=== PATIENT | female | born 1960 | race Caucasian/White ===

== ENCOUNTER 2017-12-05 10:50 | Inpatient (IN) | payer MEDICARE, OTHER ==
[2017-12-05 12:33] LABS: Basophils % (A) 0 %; Eosinophils # (A) 0.2 k/uL (0-0.7); Eosinophils % (A) 4 %; HCT 35.3 % (34.0-46.0); HGB 10.9 gm/dL (11.4-16.0); Hypochromasia Moderate; Lymphocytes # (A) 1.4 k/uL (1.0-4.8); Lymphocytes % (A) 22 %; MCHC 30.9 g/dL (31.0-37.0); MCV 74.5 fL (80.0-100.0); Mean Platelet Volume 6.3; Microcytosis Slight; Monocytes # (A) 0.4 k/uL (0-1.0); Monocytes % (A) 6 %; Neutrophils # (A) 4.2 k/uL (1.3-7.7); Neutrophils % (A) 67 %; Platelet Count 473 k/uL (150-450); RBC 4.74 m/uL (3.80-5.40); RDW 15.8 % (11.5-15.5); WBC 6.3 k/uL (3.8-10.6)
[2017-12-05 12:49] LABS: ALT 16 U/L (9-52); AST 16 U/L (14-36); Albumin 3.2 g/dL (3.5-5.0); Alkaline Phosphatase 114 U/L (38-126); Anion Gap 10 mmol/L; Blood Urea Nitrogen 12 mg/dL (7-17); Calcium 8.8 mg/dL (8.4-10.2); Carbon Dioxide 24 mmol/L (22-30); Chloride 109 mmol/L (98-107); Glucose 99 mg/dL (74-99); Potassium 3.8 mmol/L (3.5-5.1); Sodium 143 mmol/L (137-145); Total Bilirubin 0.7 mg/dL (0.2-1.3); Total Protein 7.2 g/dL (6.3-8.2)
[2017-12-05] MEDS ORDERED: ceFAZolin IN SWFI 2 GM/20 ML SYRINGE IVP ONE (13:30)
[2017-12-05] MEDS: SODIUM CHLORIDE 0.9% 1,000 ML IV SCH (14:24)
[2017-12-05] MEDS: HYDROmorphone 1 MG/ML 1 ML SYRINGE IVP PRN ×2 (14:48→23:18)
--- NOTE | 2017-12-05 14:56 | P.HPIM ---
History of Present Illness H&P Date: 12/05/17 Chief Complaint: Bilateral lower extremity ulcers This is a 57-year-old female, patient of Dr. Lo. She has a known past medical history of cerebral palsy with chronic gait disturbance, chronic bilateral lower extremity lymphedema, chronic venous insufficiency, asthma, hypertension and depression. Patient was at the wound care center seen Dr. Ellsworth for evaluation of the bilateral lower extremity ulcers. Patient was seen in the wound care center and was directly admitted to the hospital by Dr. Ellsworth under Dr. Etienne's service. Dr. Ellsworth I will be proceeding with an I&D tomorrow of the left foot. Patient's has been having drainage from the left foot. Also, per Dr. Ellsworth she apparently injured the dorsum of her left foot. Patient is a poor historian. She is unable to tell me if she's had injury to her feet. Apparently she has not been taking her medications at home. She has run out of them and was having difficulty getting refills. Social work has been consulted as well. Patient may need placement. Patient denies any chest pain or shortness of breath. Denies any nausea or vomiting. Denies any bowel movement changes or urinary symptoms. Denies any fever or chills or sweats. She does report finding a Magette on the left heel. She was able to remove it. She reports tolerating Dr. Ellsworth about this. Legs are currently wrapped. They were wrapped at the wound care center. I have not been able to visualize the legs. However, the left foot does have drainage seeping through that is foul smelling. Keflex has been ordered. Infectious disease has been consulted. Patient denies any history of diabetes. She does report pain in her feet. Review of Systems Please refer to HPI otherwise unremarkable Past Medical History Past Medical History: Asthma, GERD/Reflux, Hypertension Additional Past Medical History / Comment(s): Cerebral palsey, bilateeral lower extremity deformities, bilateral lower leg and feet cellulitis, current L foot and R lower leg ulcers, chronic lymphedema, chronic venous insufficiency, gait disturbance, occasional urinary leakage, abdominal hernia, seasonal asthma. History of Any Multi-Drug Resistant Organisms: None Reported Past Surgical History: No Surgical Hx Reported Additional Past Surgical History / Comment(s): Bilateral heel cord lenghtenings , several bilateral leg surgeries for mobility. Past Anesthesia/Blood Transfusion Reactions: No Reported Reaction, Motion Sickness Smoking Status: Never smoker - Past Family History Father Additional Family Medical History / Comment(s): Father has a mechanical heart valve. He has hypoglycemia. Mother Family Medical History: Cancer Additional Family Medical History / Comment(s): Mother from metastatic breast cancer at the age of 53 yrs. Medications and Allergies Home Medications Medication Instructions Recorded Confirmed Type Albuterol Inhaler [Ventolin Hfa 2 puff INHALATION RT-Q6H PRN 12/05/17 12/05/17 History Inhaler] Bumetanide [Bumex] 1 mg PO BID 12/05/17 12/05/17 History Cetirizine HCl [Zyrtec] 10 mg PO DAILY 12/05/17 12/05/17 History Cetirizine HCl [Zyrtec] 10 mg PO DAILY 12/05/17 12/05/17 History Ergocalciferol [Vitamin D2] 50,000 unit PO Q7D 12/05/17 12/05/17 History Fluticasone/Salmeterol [Advair 1 inhalation PO RT-BID 12/05/17 12/05/17 History 250-50 Diskus] Furosemide [Lasix] 20 mg PO DAILY 12/05/17 12/05/17 History Omeprazole [PriLOSEC] 20 mg PO BID 12/05/17 12/05/17 History Potassium Chloride [Klor-Con 20] 20 meq PO TID 12/05/17 12/05/17 History Tolterodine Tartrate [Detrol LA] 4 mg PO DAILY 12/05/17 12/05/17 History amLODIPine [Norvasc] 5 mg PO DAILY 12/05/17 12/05/17 History Allergies Allergy/AdvReac Type Severity Reaction Status Date / Time Sulfa (Sulfonamide AdvReac INDIGESTION Verified 12/05/17 08:38 Antibiotics) Physical Exam Vitals: Vital Signs Temp Pulse Resp BP Pulse Ox 12/05/17 14:17 98.0 F 84 18 159/89 98 12/05/17 12:32 96.6 F L 79 18 175/83 98 Intake and Output 12/04/17 12/05/17 12/05/17 22:59 06:59 14:59 Other: # Voids 1 Weight 102 kg Head normocephalic Neck supple Lungs clear to auscultation bilaterally no wheezing or crackles Heart regular rate and rhythm S1-S2, no rub or gallop Abdomen is soft nontender nondistended positive bowel sounds no hepatosplenomegaly Extremities chronic lymphedema bilateral lower extremities. Both legs are Nilay wrapped. Left foot has a foul drainage's seeping through the dressing. Neuro alert and orientated to 3 Results CBC & Chem 7: 12/05/17 12:15 12/05/17 12:15 Labs: Abnormal Lab Results - Last 24 Hours (Table) 12/05/17 12/05/17 Range/Units 12:15 12:15 Hgb 10.9 L (11.4-16.0) gm/dL MCV 74.5 L (80.0-100.0) fL MCH 23.0 L (25.0-35.0) pg MCHC 30.9 L (31.0-37.0) g/dL RDW 15.8 H (11.5-15.5) % Plt Count 473 H (150-450) k/uL Chloride 109 H (98-107) mmol/L Albumin 3.2 L (3.5-5.0) g/dL Thrombosis Risk Factor Assmnt - Choose All That Apply Any of the Below Risk Factors Present?: Yes Each Factor Represents 1 point: Age 41-60 years, Obesity (BMI >25) Other Risk Factors: No Other congenital or acquired thrombophilia - If yes, enter type in comment: No Thrombosis Risk Factor Assessment Total Risk Factor Score: 2 Thrombosis Risk Factor Assessment Level: Low Risk Assessment and Plan Assessment: 1. Bilateral lower extremity ulcers with a traumatic left foot ulcer. Patient is scheduled for I&D tomorrow with Dr. Ellsworth. She was a direct admit from the wound care center. Infectious disease has been consulted for antibiotic recommendations. Check blood culture. Culture ulcer drainage 2. Chronic Lymphedema of bilateral lower extremities 3. History of cerebral palsy with chronic gait disturbance 4. Chronic venous insufficiency 5. Mild intermittent asthma 6. Essential hypertension Plan Patient is scheduled for I&D tomorrow with Dr. Ellsworth. Start subcu heparin after surgical procedure tomorrow Nursing staff trying to figure out patient's home medications Start Normal saline at 50 mL an hour Dilaudid 1 mg IVPB every 8 hours as needed for pain Time with Patient: Greater than 30 (Greater than 60% of the total time spent in counseling and coordination of care.I performed an examination of the patient and discussed their management with the physician Community Service Worker. I have reviewed the Physician Community Service Worker's notes and agree with the documented findings and plan of care)
[2017-12-05] MEDS: amLODIPine 5 MG TAB PO SCH (15:40)
[2017-12-05] MEDS ORDERED: POTASSIUM CHLORIDE ER 20 MEQ TAB.ER PO SCH (16:00)
--- NOTE | 2017-12-05 16:02 | XR ---
EXAMINATION TYPE: XR foot complete bilateral DATE OF EXAM: 12/05/2017 COMPARISON: NONE HISTORY: Nonhealing wound TECHNIQUE: Three views are submitted of each foot. FINDINGS: There is diffuse soft tissue edema of the left foot with areas of air which may be related to the sof t tissue ulceration or infectious etiology with subcutaneous emphysema. There is reduced mineralizati on of the distal margin of the fourth digit suspicious for osteomyelitis. There is marked soft tissue thickening and edema overlying the right lower extremity. No overt bony d estruction. There is bilateral arthropathy of the first MTP. Due to technique and positioning assessment of dista l phalanx of all digits limited bilateral pes planus deformity. IMPRESSION: 1. Massive soft tissue edema and thickening involving the dorsum of the left foot. There is air withi n the soft tissues thickening which may represent ulceration or infectious emphysema. 2. Reduced mineralization of the fourth phalanx. Relate with bone scan to assess for osteomyelitis.
[2017-12-05] MEDS: ALBUTEROL NEBULIZED 2.5 MG/3 ML INHALATION PRN (20:19)
[2017-12-05] MEDS: SYMBICORT 80-4.5 MCG INHALER INHALATION SCH (20:29)
[2017-12-05] MEDS: BUMETANIDE 1 MG TAB PO SCH (22:27)
[2017-12-05] MEDS: POTASSIUM CHLORIDE ER 20 MEQ TAB.ER PO SCH (22:27)
[2017-12-06 02:27] LABS: Iron Saturation 5.81 (12.00-45.00)
[2017-12-06] MEDS ORDERED: ceFAZolin IN SWFI 2 GM/20 ML SYRINGE IVP ONE ×2 (06:00→11:49)
[2017-12-06] MEDS: SYMBICORT 80-4.5 MCG INHALER INHALATION SCH ×2 (08:04→20:07)
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
[2017-12-06 10:58] LABS: Basophils % (A) 0 %; Eosinophils # (A) 0.1 k/uL (0-0.7); Eosinophils % (A) 1 %; HCT 34.1 % (34.0-46.0); HGB 10.2 gm/dL (11.4-16.0); Hypochromasia Marked; Lymphocytes # (A) 1.7 k/uL (1.0-4.8); Lymphocytes % (A) 18 %; MCH 22.4 pg (25.0-35.0); MCHC 29.9 g/dL (31.0-37.0); MCV 75.1 fL (80.0-100.0); Mean Platelet Volume 6.6; Microcytosis Slight; Monocytes # (A) 0.6 k/uL (0-1.0); Monocytes % (A) 6 %; Neutrophils # (A) 6.7 k/uL (1.3-7.7); Neutrophils % (A) 73 %; Platelet Count 442 k/uL (150-450); RBC 4.54 m/uL (3.80-5.40); RDW 15.5 % (11.5-15.5); WBC 9.2 k/uL (3.8-10.6)
[2017-12-06 11:04] LABS: ALT 19 U/L (9-52); AST 13 U/L (14-36); Alkaline Phosphatase 94 U/L (38-126); Anion Gap 9 mmol/L; Blood Urea Nitrogen 9 mg/dL (7-17); Calcium 8.7 mg/dL (8.4-10.2); Carbon Dioxide 27 mmol/L (22-30); Chloride 107 mmol/L (98-107); Glucose 104 mg/dL (74-99); Potassium 3.9 mmol/L (3.5-5.1); Sodium 143 mmol/L (137-145); Total Bilirubin 0.8 mg/dL (0.2-1.3); Total Protein 6.6 g/dL (6.3-8.2)
[2017-12-06] MEDS ORDERED: IV FLUID CONTINUATION 50 ML IV ONE (13:10)
[2017-12-06] MEDS ORDERED: LACTATED RINGERS 1,000 ML IV ONE (13:17)
[2017-12-06 13:49] VITALS: BMI 41.1
--- NOTE | 2017-12-06 14:22 | XR ---
EXAMINATION TYPE: XR chest 1V portable DATE OF EXAM: 12/06/2017 COMPARISON: Prior chest x-ray 12/08/2015 HISTORY: Preop TECHNIQUE: Single frontal view of the chest is obtained. FINDINGS: Patient is rotated. There is no focal air space opacity, pleural effusion, or pneumothorax seen. The cardiac silhouette size is within normal limits. The osseous structures are intact. IMPRESSION: No acute process.
[2017-12-06] MEDS ORDERED: HYDROmorphone 1 MG/ML 1 ML SYRINGE IVP ONE (14:24)
[2017-12-06] MEDS ORDERED: KETAMINE 10 MG/ML 20 ML VIAL ONE (14:32)
[2017-12-06] MEDS ORDERED: fentaNYL (PF) 50 MCG/ML 2 ML AMP ONE (14:32)
[2017-12-06] MEDS ORDERED: PROPOFOL 10 MG/ML 20 ML VIAL IV ONE (14:32)
[2017-12-06] MEDS ORDERED: MIDAZOLAM 2 MG/2 ML VIAL ONE (14:32)
--- NOTE | 2017-12-06 15:41 | PCM.SQDEBR ---
Subcutaneous Debridement - Subcutaneous Debridement Subcutaneous Debridement: Date of service: 12/06/2017 Surgeon: Seng Pre-and postop diagnosis: Traumatic ulcer dorsum left foot and chronic stasis ulcer 2 right leg Type of debridement: Excisional surgical subcutaneous Chief complaint: ulcer of dorsum left foot and medial and lateral right lower leg Anesthesia: IV sedation was utilized Signs of infection: Mild redness Other material in the wound that is expected to inhibit healing or promote adjacent tissue breakdown: Nonviable skin and soft tissue Degree of epithelialization: % Method and instrument: Surgical debridement with scalpel and sharp curette Character of wound after debridement: Clean bloody subcutaneous bed Description of necrotic material present: Nonviable skin and soft tissue and slough Description of tissue removed: Same Pre-debridement measurement: Dorsum left foot 4 x 5, medial right lower leg 2.5 x 1.8 lateral right lower leg 2 x 1.1 cm and 4, 0.2, and 0.2 cm in depth respectively Postoperative debridement measurement: 7 x 6.5, 3 x 2, and 2.5 x 1.5 cm respectively and 4.5, 0.4, and 0.3 cm in depth respectively Specimens deep tissue from the dorsum of the foot sent for cultures Control of bleeding:Bleeding was easily controlled with saline moistened gauze and light pressure Post debridement dressing: Absorptive silver Patient tolerated procedure well
[2017-12-06] MEDS: HYDROmorphone 1 MG/ML 1 ML SYRINGE IVP ONE ×2 (15:43→15:54)
[2017-12-06] MEDS: SODIUM CHLORIDE 0.9% 1,000 ML IV SCH (16:31)
--- NOTE | 2017-12-06 16:41 | P.PN ---
Subjective Progress Note Date: 12/06/17 This is a 57-year-old female, patient of Dr. Lo. She has a known past medical history of cerebral palsy with chronic gait disturbance, chronic bilateral lower extremity lymphedema, chronic venous insufficiency, asthma, hypertension and depression. Patient was at the wound care center seen Dr. Ellsworth for evaluation of the bilateral lower extremity ulcers. Patient was seen in the wound care center and was directly admitted to the hospital by Dr. Ellsworth under Dr. Etienne's service. Dr. Ellsworth I will be proceeding with an I&D tomorrow of the left foot. Patient's has been having drainage from the left foot. Also, per Dr. Ellsworth she apparently injured the dorsum of her left foot. Patient is a poor historian. She is unable to tell me if she's had injury to her feet. Apparently she has not been taking her medications at home. She has run out of them and was having difficulty getting refills. Social work has been consulted as well. Patient may need placement. Patient denies any chest pain or shortness of breath. Denies any nausea or vomiting. Denies any bowel movement changes or urinary symptoms. Denies any fever or chills or sweats. She does report finding a Magette on the left heel. She was able to remove it. She reports tolerating Dr. Ellsworth about this. Legs are currently wrapped. They were wrapped at the wound care center. I have not been able to visualize the legs. However, the left foot does have drainage seeping through that is foul smelling. Keflex has been ordered. Infectious disease has been consulted. Patient denies any history of diabetes. She does report pain in her feet. 12/06/2017 patient is status post debridement of left foot with Dr. Laws. Patient denies chest pain or shortness of breath. Denies nausea, vomiting or diarrhea. Denies any urinary burning or frequency Objective - Vital Signs Vital signs: Vital Signs Temp 97 F L 12/06/17 15:39 Pulse 81 12/06/17 16:00 Resp 14 12/06/17 16:00 BP 151/77 12/06/17 16:00 Pulse Ox 99 12/06/17 16:00 Intake & Output 12/05/17 12/06/17 12/06/17 18:59 06:59 18:59 Intake Total 400 1000 Output Total 20 Balance 400 980 Weight 102 kg 102 kg Intake: IV 600 Intake, IV Titration 400 400 Amount Sodium Chloride 0.9% 1, 400 400 000 ml @ 50 mls/hr IV . Q20H [facility] Rx#:[id number] Output: Estimated Blood Loss 20 Other: # Voids 1 8 - Exam Head normocephalic Neck supple Lungs clear to auscultation bilaterally no wheezing or crackles Heart regular rate and rhythm S1-S2, no rub or gallop Abdomen is soft nontender nondistended positive bowel sounds no hepatosplenomegaly Extremities chronic lymphedema bilateral lower extremities. Both legs are Nilay wrapped. left foot dressing clean dry an intact Neuro alert and orientated to 3 - Labs CBC & Chem 7: 12/06/17 10:11 12/06/17 10:11 Labs: Abnormal Lab Results - Last 24 Hours (Table) 12/05/17 12/05/17 12/06/17 Range/Units 12:15 15:45 10:11 Hgb 10.2 L (11.4-16.0) gm/dL MCV 75.1 L (80.0-100.0) fL MCH 22.4 L (25.0-35.0) pg MCHC 29.9 L (31.0-37.0) g/dL Glucose (74-99) mg/dL Iron 19 L (50-170) ug/dL Iron Saturation 5.81 L (12.00-45.00) AST (14-36) U/L Albumin (3.5-5.0) g/dL Prealbumin 15.0 L (18.0-42.0) mg/dL 12/06/17 Range/Units 10:11 Hgb (11.4-16.0) gm/dL MCV (80.0-100.0) fL MCH (25.0-35.0) pg MCHC (31.0-37.0) g/dL Glucose 104 H (74-99) mg/dL Iron (50-170) ug/dL Iron Saturation (12.00-45.00) AST 13 L (14-36) U/L Albumin 3.0 L (3.5-5.0) g/dL Prealbumin (18.0-42.0) mg/dL Assessment and Plan Assessment: 1. Bilateral lower extremity ulcers with a traumatic left foot ulcer. Patient is scheduled for I&D tomorrow with Dr. Ellsworth. She was a direct admit from the wound care center. Infectious disease has been consulted for antibiotic recommendations. Patient is status post subcutaneous debated debridement of left foot with Dr. Laws today. Blood Culture currently negative. Left leg currently negative. 2. Chronic Lymphedema of bilateral lower extremities 3. History of cerebral palsy with chronic gait disturbance 4. Chronic venous insufficiency 5. Mild intermittent asthma 6. Essential hypertension GI prophylaxis Protonix. DVT prophylaxis SCDs I performed an examination of the patient and discussed their management with the Nurse Practitioner. I have reviewed the Nurse Practitioner's notes and agree with the documented findings and plan of care
[2017-12-06] MEDS: amLODIPine 5 MG TAB PO SCH (18:48)
[2017-12-06] MEDS: NYSTATIN 100,000 UNIT/GM POWD 15 GM TOPICAL SCH ×3 (18:48→22:11)
[2017-12-06] MEDS: OXYBUTYNIN XL 5 MG TAB.ER.24 PO SCH (18:48)
[2017-12-06] MEDS: PANTOPRAZOLE 40 MG TABLET PO SCH (18:48)
[2017-12-06] MEDS: POTASSIUM CHLORIDE ER 20 MEQ TAB.ER PO SCH ×2 (18:48→22:11)
[2017-12-06] MEDS: BUMETANIDE 1 MG TAB PO SCH ×2 (18:48→22:11)
[2017-12-06] MEDS: ONDANSETRON 4 MG/2 ML VIAL IVP PRN (20:30)
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
[2017-12-07] MEDS: HYDROmorphone 1 MG/ML 1 ML SYRINGE IVP PRN ×3 (05:32→21:52)
[2017-12-07] MEDS: SODIUM CHLORIDE 0.9% 1,000 ML IV SCH (06:00)
[2017-12-07] MEDS: POTASSIUM CHLORIDE ER 20 MEQ TAB.ER PO SCH ×2 (08:27→20:51)
[2017-12-07] MEDS: amLODIPine 5 MG TAB PO SCH (08:27)
[2017-12-07] MEDS: PANTOPRAZOLE 40 MG TABLET PO SCH (08:27)
[2017-12-07] MEDS: NYSTATIN 100,000 UNIT/GM POWD 15 GM TOPICAL SCH ×3 (08:27→21:49)
[2017-12-07] MEDS: OXYBUTYNIN XL 5 MG TAB.ER.24 PO SCH (08:27)
[2017-12-07] MEDS: BUMETANIDE 1 MG TAB PO SCH ×2 (08:27→20:52)
[2017-12-07 08:47] LABS: ALT 9 U/L (9-52); AST 14 U/L (14-36); Albumin 2.7 g/dL (3.5-5.0); Alkaline Phosphatase 82 U/L (38-126); Anion Gap 8 mmol/L; Blood Urea Nitrogen 6 mg/dL (7-17); Calcium 8.4 mg/dL (8.4-10.2); Carbon Dioxide 27 mmol/L (22-30); Chloride 106 mmol/L (98-107); Glucose 140 mg/dL (74-99); Sodium 141 mmol/L (137-145); Total Bilirubin 0.9 mg/dL (0.2-1.3); Total Protein 6.3 g/dL (6.3-8.2)
--- NOTE | 2017-12-07 08:51 | P.PN ---
Subjective Progress Note Date: 12/07/17 Principal diagnosis: Chronic lymphedema with ulcers right leg and traumatic ulcer left foot The patient is status post I&D of all of her ulcers and her left foot wound yesterday. She has no new complaints. She does not appear to have significant discomfort. Objective - Vital Signs Vital signs: Vital Signs Temp 98.3 F 12/07/17 07:00 Pulse 100 12/07/17 07:00 Resp 18 12/07/17 07:00 BP 117/80 12/07/17 07:00 Pulse Ox 95 12/07/17 07:00 Intake & Output 12/06/17 12/07/17 12/07/17 18:59 06:59 18:59 Intake Total 1450 400 Output Total 20 Balance 1430 400 Weight 102 kg Intake: IV 1050 Intake, IV Titration 400 400 Amount Sodium Chloride 0.9% 1, 400 400 000 ml @ 50 mls/hr IV . Q20H PAM Rx#:[id number] Output: Estimated Blood Loss 20 Other: # Voids 3 - Exam Her wounds are at this time clean. There is some serous drainage from the left foot dressing. - Labs CBC & Chem 7: 12/06/17 10:11 12/07/17 08:11 Labs: Abnormal Lab Results - Last 24 Hours (Table) 12/06/17 12/06/17 12/07/17 Range/Units 10:11 10:11 08:11 Hgb 10.2 L (11.4-16.0) gm/dL MCV 75.1 L (80.0-100.0) fL MCH 22.4 L (25.0-35.0) pg MCHC 29.9 L (31.0-37.0) g/dL BUN 6 L (7-17) mg/dL Glucose 104 H 140 H (74-99) mg/dL AST 13 L (14-36) U/L Albumin 3.0 L 2.7 L (3.5-5.0) g/dL Microbiology - Last 24 Hours (Table) 12/06/17 15:08 Gram Stain - Preliminary Foot - Left Tissue Culture - Preliminary 12/06/17 15:08 Anaerobic Culture - Preliminary Foot - Left 12/05/17 16:07 Blood Culture - Preliminary Blood No Growth after 24 hours 12/05/17 15:45 Blood Culture - Preliminary Blood No Growth after 24 hours Assessment and Plan (1) Chronic ulcer of left foot with fat layer exposed Current Visit: No Status: Acute Code(s): L97.522 - NON-PRS CHRONIC ULCER OTH PRT LEFT FOOT W FAT LAYER EXPOSED SNOMED Code(s): 382321199 (2) Lymphedema of both lower extremities Current Visit: No Status: Acute Code(s): I89.0 - LYMPHEDEMA, NOT ELSEWHERE CLASSIFIED SNOMED Code(s): 04198908174992958 Plan: This patient's wounds appear to be stable at this time. I have requested absorptive silver for the right leg with Nilay wraps for compression. I would like Nilay wrap compression on the left leg as well as a wound VAC. She will require ECF placement, due to her physical disabilities, until she has resolved her wounds. She will require leg elevation the majority of the time. She can still do other physical activities in bed to maintain strength. I will be out of town for a few weeks and she can follow in the wounds center with other individuals until my return.
[2017-12-07 09:04] LABS: Basophils % (A) 0 %; Eosinophils # (A) 0.3 k/uL (0-0.7); Eosinophils % (A) 4 %; HCT 33.1 % (34.0-46.0); HGB 10.2 gm/dL (11.4-16.0); Hypochromasia Marked; Lymphocytes # (A) 1.3 k/uL (1.0-4.8); Lymphocytes % (A) 14 %; MCH 23.2 pg (25.0-35.0); MCHC 30.7 g/dL (31.0-37.0); MCV 75.6 fL (80.0-100.0); Mean Platelet Volume 6.8; Microcytosis Slight; Monocytes # (A) 0.5 k/uL (0-1.0); Monocytes % (A) 6 %; Neutrophils # (A) 6.6 k/uL (1.3-7.7); Neutrophils % (A) 75 %; Platelet Count 403 k/uL (150-450); RBC 4.38 m/uL (3.80-5.40); RDW 15.5 % (11.5-15.5); WBC 8.8 k/uL (3.8-10.6)
[2017-12-07] MEDS: SYMBICORT 80-4.5 MCG INHALER INHALATION SCH ×2 (09:07→22:16)
--- NOTE | 2017-12-07 12:25 | P.PN ---
Subjective Progress Note Date: 12/07/17 his is a 57-year-old female, patient of Dr. Lo. She has a known past medical history of cerebral palsy with chronic gait disturbance, chronic bilateral lower extremity lymphedema, chronic venous insufficiency, asthma, hypertension and depression. Patient was at the wound care center seen Dr. Ellsworth for evaluation of the bilateral lower extremity ulcers. Patient was seen in the wound care center and was directly admitted to the hospital by Dr. Ellsworth under Dr. Etienne's service. Dr. Ellsworth I will be proceeding with an I&D tomorrow of the left foot. Patient's has been having drainage from the left foot. Also, per Dr. Ellsworth she apparently injured the dorsum of her left foot. Patient is a poor historian. She is unable to tell me if she's had injury to her feet. Apparently she has not been taking her medications at home. She has run out of them and was having difficulty getting refills. Social work has been consulted as well. Patient may need placement. Patient denies any chest pain or shortness of breath. Denies any nausea or vomiting. Denies any bowel movement changes or urinary symptoms. Denies any fever or chills or sweats. She does report finding a Magette on the left heel. She was able to remove it. She reports tolerating Dr. Ellswroth about this. Legs are currently wrapped. They were wrapped at the wound care center. I have not been able to visualize the legs. However, the left foot does have drainage seeping through that is foul smelling. Keflex has been ordered. Infectious disease has been consulted. Patient denies any history of diabetes. She does report pain in her feet. 12/06/2017 patient is status post debridement of left foot with Dr. Laws. Patient denies chest pain or shortness of breath. Denies nausea, vomiting or diarrhea. Denies any urinary burning or frequency 12/07/2017 patient scheduled for bone scan today. Also scheduled for wound VAC placement on the left foot. Pain is tolerable. Discussed with infectious disease they've adjusted antibiotics to Kefzol 2 g IV every 8 hours. Cultures are pending. Patient does have evidence of iron deficiency anemia placed on iron supplement. Hemoglobin 10.2. Will switch patient to oral pain medication in anticipation for discharge to [facility] soon. Objective - Vital Signs Vital signs: Vital Signs Temp 98.3 F 12/07/17 07:00 Pulse 100 12/07/17 07:00 Resp 18 12/07/17 07:00 BP 117/80 12/07/17 07:00 Pulse Ox 95 12/07/17 09:07 Intake & Output 12/06/17 12/07/17 12/07/17 18:59 06:59 18:59 Intake Total 1450 400 Output Total 20 Balance 1430 400 Weight 102 kg Intake: IV 1050 Intake, IV Titration 400 400 Amount Sodium Chloride 0.9% 1, 400 400 000 ml @ 50 mls/hr IV . Q20H PAM Rx#:[id number] Output: Estimated Blood Loss 20 Other: # Voids 3 - Exam Head normocephalic Neck supple Lungs clear to auscultation bilaterally no wheezing or crackles Heart regular rate and rhythm S1-S2, no rub or gallop Abdomen is soft nontender nondistended positive bowel sounds no hepatosplenomegaly Extremities legs are Nilay wrap. Drainage from the left foot Neuro alert and orientated to 3 - Labs CBC & Chem 7: 12/07/17 08:11 12/07/17 08:11 Labs: Abnormal Lab Results - Last 24 Hours (Table) 12/06/17 12/07/17 12/07/17 Range/Units 10:11 08:11 08:11 Hgb 10.2 L 10.2 L (11.4-16.0) gm/dL Hct 33.1 L (34.0-46.0) % MCV 75.1 L 75.6 L (80.0-100.0) fL MCH 22.4 L 23.2 L (25.0-35.0) pg MCHC 29.9 L 30.7 L (31.0-37.0) g/dL BUN 6 L (7-17) mg/dL Glucose 140 H (74-99) mg/dL Albumin 2.7 L (3.5-5.0) g/dL Microbiology - Last 24 Hours (Table) 12/06/17 15:08 Gram Stain - Preliminary Foot - Left Tissue Culture - Preliminary 12/06/17 15:08 Anaerobic Culture - Preliminary Foot - Left 12/05/17 16:07 Blood Culture - Preliminary Blood No Growth after 24 hours 12/05/17 15:45 Blood Culture - Preliminary Blood No Growth after 24 hours Assessment and Plan Assessment: 1. Bilateral lower extremity ulcers with a traumatic left foot ulcer. Status post debridement of the left foot by Dr. Ellsworth. Patient scheduled for bone scan and wound VAC placement today. Cultures are negative so far. Continue with IV Kefzol 2 grams every 8 hours per infectious disease 2. Chronic Lymphedema of bilateral lower extremities 3. History of cerebral palsy with chronic gait disturbance 4. Chronic venous insufficiency 5. Mild intermittent asthma 6. Essential hypertension 7. Iron deficiency anemia: Start ferrous sulfate 325 mg twice a day. Iron low at 19 8. Moderate to severe protein calorie malnutrition: Albumin 2.7. Start ensure 1 can 3 times a day with meals Consult Dr. Bennett for possible inpatient rehab Social work and physical therapy following. Patient will require placement at time of discharge. I performed an examination of the patient and discussed their management with the physician Hat Liner. I have reviewed the Physician Hat Liner's notes and agree with the documented findings and plan of care
--- NOTE | 2017-12-07 14:17 | NM ---
EXAMINATION TYPE: NM bone 3 phase DATE OF EXAM: 12/07/2017 COMPARISON: X-ray dated 12/05/2017 HISTORY: Pain Triple phase bone scintigraphy was performed following the injection of 25.3 mCi Tc 99m MDP. Immedia te images and 4.25 hours post injection images acquired. FINDINGS: There is asymmetric increased flow to the left lower extremity and foot.. Increased soft tissue uptake overlying the dorsum of the foot is suggestive of cellulitis. Delayed uptake demonstrates no diagnostic evidence of osteomyelitis. IMPRESSION: Findings most compatible with cellulitis left foot
[2017-12-07] MEDS: HYDROcodone/APAP 5-325MG 1 EACH TAB PO PRN (14:48)
[2017-12-07] MEDS ORDERED: HYDROmorphone 1 MG/ML 1 ML SYRINGE IVP STA (15:07)
[2017-12-07] MEDS: ceFAZolin IN SWFI 2 GM/20 ML SYRINGE IVP SCH (15:34)
[2017-12-07] MEDS: ONDANSETRON 4 MG/2 ML VIAL IVP PRN (15:34)
--- NOTE | 2017-12-07 16:21 | P.CONS ---
History of Present Illness - Chief Complaint Medical debility - History of Present Illness I had the opportunity to see patient for inpatient rehab consultation with regard to medical debility. She was admitted to [facility] December 05 with bilateral foot swelling and cellulitis of left foot. A foot x-ray done and demonstrated marked edema left foot. Bone scan done in's consistent with cellulitis left foot. Chest x-ray negative. Seen in consultation by Dr. Matthews in [place]. Patient reports underwent debridement procedure yesterday. Previous functional history as elicited patient: 57 showed right-handed white female single lives in a first-floor apartment alone. On SSI. Describes independent with own cooking, laundry, driving, sitdown shower. Previously using 2 canes for gait with more recently POV. Doesn't smoke or drink. Dr. Lo is regular doctor. Family history of cancer in both parents and hypertension in father. Review of Systems Review of systems: ENT: Denies sneezes or discharge. Eyes: Denies discharge or photophobia. Cardiac: Denies chest pain or palpitation. Pulmonary: Denies cough or shortness of breath. Breast: Denies discharge or lumps. Gastrointestinal: Nausea from pain medication. Genitourinary: Denies discharge or frequency. Musculoskeletal: Bilateral foot discomfort that is severe and left. Neurologic: Long-standing weakness legs due to cerebral palsy.. Endocrine: Denies shakes or sweats. Oncology: Denies cancers. Dermatologic: Denies rash, itching, pruritus. ALLERGY/immunology: Denies sneezes, rashes. Past Medical History Past Medical History: Asthma, GERD/Reflux, Hypertension Additional Past Medical History / Comment(s): Cerebral palsey, bilateeral lower extremity deformities, bilateral lower leg and feet cellulitis, current L foot and R lower leg ulcers, chronic lymphedema, chronic venous insufficiency, gait disturbance, occasional urinary leakage, abdominal hernia, seasonal asthma. History of Any Multi-Drug Resistant Organisms: None Reported Past Surgical History: No Surgical Hx Reported Additional Past Surgical History / Comment(s): Bilateral heel cord lenghtenings , several bilateral leg surgeries for mobility. Past Anesthesia/Blood Transfusion Reactions: No Reported Reaction, Motion Sickness Smoking Status: Never smoker Additional Past Alcohol Use History / Comment(s): Lifelong nonsmoker. No illicit drug use. Patient lives independently but states she needs to move out by the end of the month. She normally uses a scooter for ambulation. - Past Family History Father Additional Family Medical History / Comment(s): Father has a mechanical heart valve. He has hypoglycemia. Mother Family Medical History: Cancer Additional Family Medical History / Comment(s): Mother from metastatic breast cancer at the age of 53 yrs. Medications and Allergies Home Medications Medication Instructions Recorded Confirmed Type Albuterol Inhaler [Ventolin Hfa 2 puff INHALATION RT-Q6H PRN 12/05/17 12/05/17 History Inhaler] Bumetanide [Bumex] 1 mg PO BID 12/05/17 12/05/17 History Cetirizine HCl [Zyrtec] 10 mg PO DAILY 12/05/17 12/05/17 History Ergocalciferol [Vitamin D2] 50,000 unit PO Q7D 12/05/17 12/05/17 History Fluticasone/Salmeterol [Advair 1 inhalation PO RT-BID 12/05/17 12/05/17 History 250-50 Diskus] Furosemide [Lasix] 20 mg PO DAILY 12/05/17 12/05/17 History Lidocaine 5% Patch [Lidoderm] 1 patch TOPICAL DAILY 12/05/17 12/05/17 History Omeprazole [PriLOSEC] 20 mg PO BID 12/05/17 12/05/17 History Potassium Chloride [Klor-Con 20] 20 meq PO TID 12/05/17 12/05/17 History Tolterodine Tartrate [Detrol LA] 4 mg PO DAILY 12/05/17 12/05/17 History amLODIPine [Norvasc] 5 mg PO DAILY 12/05/17 12/05/17 History Allergies Allergy/AdvReac Type Severity Reaction Status Date / Time Sulfa (Sulfonamide AdvReac INDIGESTION Verified 12/06/17 13:19 Antibiotics) Physical Exam Vitals: Vital Signs Temp Pulse Resp BP BP Pulse Ox 12/07/17 15:00 98.3 F 91 18 134/69 96 12/07/17 09:07 95 12/07/17 07:00 98.3 F 100 18 117/80 95 12/06/17 23:00 99.1 F 92 17 148/78 93 L 12/06/17 16:55 81 153/88 96 12/06/17 16:40 87 150/82 96 12/06/17 16:31 82 6 L 151/71 94 L 12/06/17 16:25 98.1 F 86 18 166/93 99 Intake and Output 12/07/17 12/07/17 12/07/17 06:59 14:59 22:59 Other: # Voids 3 Skin: Good color, texture, turgor. General: Medium build and comfortable appearance. Head: Normocephalic, atraumatic. Eyes: Symmetric. Pupils equal round. Ears: Symmetric. Hearing within normal limits. Mouth: Clear. Neck: Supple. Carotid without bruit. Cardiac: Regular rate and rhythm. Lungs: Clear anteriorly and posteriorly. Abdomen: Soft active nontender. Overweight. Extremities: Normal tone. Both legs demonstrate flexion and knees and external rotation at ankles. Left foot is markedly swollen with a drainage tube. Neurological: Mental status: Alert, cooperative, pleasant. Cranial nerves: Symmetric facial tone and trapezius. Motor: Normal strength in arms. Legs poor. Sensation: Intact throughout. DTRs: Symmetric and equal throughout. Mobility: Unable to sit or stand up at this time due to nausea and lower extremity weakness. Results CBC & Chem 7: 12/07/17 08:11 12/07/17 08:11 Labs: Abnormal Lab Results - Last 24 Hours (Table) 12/07/17 12/07/17 Range/Units 08:11 08:11 Hgb 10.2 L (11.4-16.0) gm/dL Hct 33.1 L (34.0-46.0) % MCV 75.6 L (80.0-100.0) fL MCH 23.2 L (25.0-35.0) pg MCHC 30.7 L (31.0-37.0) g/dL BUN 6 L (7-17) mg/dL Glucose 140 H (74-99) mg/dL Albumin 2.7 L (3.5-5.0) g/dL Microbiology - Last 24 Hours (Table) 12/06/17 15:08 Gram Stain - Preliminary Foot - Left Tissue Culture - Preliminary 12/06/17 15:08 Anaerobic Culture - Preliminary Foot - Left 12/05/17 16:07 Blood Culture - Preliminary Blood No Growth after 24 hours 12/05/17 15:45 Blood Culture - Preliminary Blood No Growth after 24 hours Assessment and Plan (1) Chronic ulcer of left foot with fat layer exposed Current Visit: No Status: Acute Code(s): L97.522 - NON-PRS CHRONIC ULCER OTH PRT LEFT FOOT W FAT LAYER EXPOSED SNOMED Code(s): 525903153 (2) Lymphedema of both lower extremities Current Visit: No Status: Acute Code(s): I89.0 - LYMPHEDEMA, NOT ELSEWHERE CLASSIFIED SNOMED Code(s): 46845779395062755 (3) Cellulitis Current Visit: No Status: Acute Code(s): L03.90 - CELLULITIS, UNSPECIFIED SNOMED Code(s): 879909985 Plan: Impression: 1. Walking difficulty. 2. Cellulitis left foot. 3. Cerebral palsy, spastic diplegia. 4. Asthma. 5. Hypertension. 6. GERD. Comments and plan: At this time PT and OT are ordered. Follow therapies with yourself.
[2017-12-07] MEDS: FERROUS SULFATE 325 MG TAB PO SCH (20:52)
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
[2017-12-08] MEDS: ceFAZolin IN SWFI 2 GM/20 ML SYRINGE IVP SCH ×3 (00:01→18:07)
[2017-12-08] MEDS: SODIUM CHLORIDE 0.9% 1,000 ML IV SCH (03:14)
[2017-12-08 08:27] LABS: Basophils % (A) 0 %; Eosinophils # (A) 0.4 k/uL (0-0.7); Eosinophils % (A) 5 %; HCT 33.7 % (34.0-46.0); HGB 10.4 gm/dL (11.4-16.0); Hypochromasia Slight; Lymphocytes # (A) 1.5 k/uL (1.0-4.8); Lymphocytes % (A) 16 %; MCH 22.8 pg (25.0-35.0); MCHC 30.9 g/dL (31.0-37.0); MCV 73.9 fL (80.0-100.0); Microcytosis Slight; Monocytes # (A) 0.7 k/uL (0-1.0); Monocytes % (A) 8 %; Neutrophils # (A) 6.4 k/uL (1.3-7.7); Neutrophils % (A) 70 %; Platelet Count 374 k/uL (150-450); RBC 4.56 m/uL (3.80-5.40); RDW 15.9 % (11.5-15.5); WBC 9.1 k/uL (3.8-10.6)
[2017-12-08 08:38] LABS: Albumin 3.1 g/dL (3.5-5.0); Calcium 8.5 mg/dL (8.4-10.2); Potassium 4.3 mmol/L (3.5-5.1); Total Bilirubin 0.8 mg/dL (0.2-1.3); Total Protein 6.9 g/dL (6.3-8.2)
[2017-12-08] MEDS: PANTOPRAZOLE 40 MG TABLET PO SCH (08:51)
[2017-12-08] MEDS: FERROUS SULFATE 325 MG TAB PO SCH ×2 (08:51→22:29)
[2017-12-08] MEDS: HYDROmorphone 1 MG/ML 1 ML SYRINGE IVP PRN (08:51)
[2017-12-08] MEDS: amLODIPine 5 MG TAB PO SCH (08:51)
[2017-12-08] MEDS: OXYBUTYNIN XL 5 MG TAB.ER.24 PO SCH (08:51)
[2017-12-08] MEDS: BUMETANIDE 1 MG TAB PO SCH ×2 (08:51→22:29)
[2017-12-08] MEDS: POTASSIUM CHLORIDE ER 20 MEQ TAB.ER PO SCH ×2 (08:51→22:29)
[2017-12-08] MEDS: SYMBICORT 80-4.5 MCG INHALER INHALATION SCH ×2 (09:06→19:52)
--- NOTE | 2017-12-08 11:01 | P.PN ---
Subjective Progress Note Date: 12/08/17 his is a 57-year-old female, patient of Dr. Lo. She has a known past medical history of cerebral palsy with chronic gait disturbance, chronic bilateral lower extremity lymphedema, chronic venous insufficiency, asthma, hypertension and depression. Patient was at the wound care center seen Dr. Ellsworth for evaluation of the bilateral lower extremity ulcers. Patient was seen in the wound care center and was directly admitted to the hospital by Dr. Ellsworth under Dr. Etienne's service. Dr. Ellsworth I will be proceeding with an I&D tomorrow of the left foot. Patient's has been having drainage from the left foot. Also, per Dr. Ellsworth she apparently injured the dorsum of her left foot. Patient is a poor historian. She is unable to tell me if she's had injury to her feet. Apparently she has not been taking her medications at home. She has run out of them and was having difficulty getting refills. Social work has been consulted as well. Patient may need placement. Patient denies any chest pain or shortness of breath. Denies any nausea or vomiting. Denies any bowel movement changes or urinary symptoms. Denies any fever or chills or sweats. She does report finding a Magette on the left heel. She was able to remove it. She reports tolerating Dr. Ellsworth about this. Legs are currently wrapped. They were wrapped at the wound care center. I have not been able to visualize the legs. However, the left foot does have drainage seeping through that is foul smelling. Keflex has been ordered. Infectious disease has been consulted. Patient denies any history of diabetes. She does report pain in her feet. 12/06/2017 patient is status post debridement of left foot with Dr. Laws. Patient denies chest pain or shortness of breath. Denies nausea, vomiting or diarrhea. Denies any urinary burning or frequency 12/07/2017 patient scheduled for bone scan today. Also scheduled for wound VAC placement on the left foot. Pain is tolerable. Discussed with infectious disease they've adjusted antibiotics to Kefzol 2 g IV every 8 hours. Cultures are pending. Patient does have evidence of iron deficiency anemia placed on iron supplement. Hemoglobin 10.2. Will switch patient to oral pain medication in anticipation for discharge to [facility] soon. 12/08/2018 patient lying in bed comfortably. Reporting now that her pain is controlled. She had wound VAC placed yesterday. Bone scan completed showing no osteomyelitis is evidence of cellulitis of the left foot. Left foot tissue culture growing gram-negative bacilli and group D enterococcus. Infectious diseasewith surgery are following. Patient seen by Dr. Joseph awaiting physical therapy input for his final decision by patient. Patient reports she is passing gas no bowel movement yet. Denies any burning with urination. Did have some nausea earlier today. Was able to eat. No actual vomiting. Objective - Vital Signs Vital signs: Vital Signs Temp 98.8 F 12/08/17 06:55 Pulse 86 12/08/17 06:55 Resp 16 12/08/17 06:55 BP 140/78 12/08/17 06:55 Pulse Ox 97 12/08/17 06:55 Intake & Output 12/07/17 12/08/17 12/08/17 18:59 06:59 18:59 Intake Total 400 200 Balance 400 200 Intake: Intake, IV Titration 400 Amount IV Fluid Continuation 50 400 ml @ 0 mls/hr IV .[facility] ONE Rx#:[id number] Oral 200 Other: Voiding Method Bedpan Bedpan Bedpan Incontinent Incontinent Incontinent # Voids 4 1 - Exam Head normocephalic Neck supple Lungs clear to auscultation bilaterally no wheezing or crackles Heart regular rate and rhythm S1-S2, no rub or gallop Abdomen is soft nontender nondistended positive bowel sounds no hepatosplenomegaly Extremities legs are Nilay wrap. Left foot wound VAC in place Neuro alert and orientated to 3 - Labs CBC & Chem 7: 12/08/17 07:47 12/08/17 07:47 Labs: Abnormal Lab Results - Last 24 Hours (Table) 12/08/17 12/08/17 Range/Units 07:47 07:47 Hgb 10.4 L (11.4-16.0) gm/dL Hct 33.7 L (34.0-46.0) % MCV 73.9 L (80.0-100.0) fL MCH 22.8 L (25.0-35.0) pg MCHC 30.9 L (31.0-37.0) g/dL RDW 15.9 H (11.5-15.5) % Glucose 100 H (74-99) mg/dL Albumin 3.1 L (3.5-5.0) g/dL Microbiology - Last 24 Hours (Table) 12/06/17 15:08 Gram Stain - Preliminary Foot - Left Tissue Culture - Preliminary Gram Neg Bacilli Gram Neg Bacilli#2 Group D Enterococcus 12/05/17 16:07 Blood Culture - Preliminary Blood No Growth after 48 hours 12/05/17 15:45 Blood Culture - Preliminary Blood No Growth after 48 hours Assessment and Plan Assessment: 1. Bilateral lower extremity ulcers with a traumatic left foot ulcer. Status post debridement of the left foot by Dr. Ellsworth. Patient status post wound VAC placement to the left foot. Continue Kefzol for IV antibiotics. Infectious disease is following. Culture growing gram-negative bacilli and group D enterococcus. Bone scan showed no evidence of osteomyelitis did reveal cellulitis of the left foot. Awaiting wound cultures to be finalized and further antibiotic recommendations 2. Chronic Lymphedema of bilateral lower extremities 3. History of cerebral palsy with chronic gait disturbance 4. Chronic venous insufficiency 5. Mild intermittent asthma 6. Essential hypertension 7. Iron deficiency anemia: Start ferrous sulfate 325 mg twice a day. Iron low at 19 8. Moderate to severe protein calorie malnutrition: Albumin 2.7. Start ensure 1 can 3 times a day with meals Consult Dr. Bennett for possible inpatient rehab Social work and physical therapy following. Patient will require placement at time of discharge. I performed an examination of the patient and discussed their management with the physician Washtub Worker Helper. I have reviewed the Physician Washtub Worker Helper's notes and agree with the documented findings and plan of care
[2017-12-08] MEDS: NYSTATIN 100,000 UNIT/GM POWD 15 GM TOPICAL SCH ×2 (12:04→18:08)
--- NOTE | 2017-12-08 16:32 | P.PN ---
Subjective Progress Note Date: 12/08/17 Principal diagnosis: Traumatic ulcer dorsum left foot and chronic stasis ulcer 2 right leg. Previous medical history of cerebral palsy with chronic rate disturbance, chronic bilateral lower extremity lymphedema, chronic venous insufficiency, asthma, hypertension, and depression. POD #1 excisional surgical subcutaneous debridement of the left leg Patient is currently laying in bed with legs elevated and wound VAC on left leg in no acute distress. Objective - Vital Signs Vital signs: Vital Signs Temp 98.8 F 12/08/17 06:55 Pulse 86 12/08/17 06:55 Resp 16 12/08/17 06:55 BP 140/78 12/08/17 06:55 Pulse Ox 97 12/08/17 06:55 Intake & Output 12/07/17 12/08/17 12/08/17 18:59 06:59 18:59 Intake Total 400 200 Balance 400 200 Weight 102 kg Intake: Intake, IV Titration 400 Amount IV Fluid Continuation 50 400 ml @ 0 mls/hr IV .[employer] ONE Rx#:[id number] Oral 200 Other: Voiding Method Bedpan Bedpan Bedpan Incontinent Incontinent Incontinent # Voids 4 1 - Constitutional General appearance: Present: cooperative, no acute distress, obese - Respiratory Details: Lungs sounds clear to auscultation. Respirations even, nonlabored. Currently on room air with oxygen saturation 97%. - Cardiovascular Details: S1, S2 present. Regular rate and rhythm. - Gastrointestinal Gastrointestinal Comment(s): Abdomen soft, nontender, nondistended. Active bowel sounds 4 quadrants. Tolerating diet. - Genitourinary Genitourinary Comment(s): Continues to void via bedpan. - Musculoskeletal Musculoskeletal: Present: strength equal bilaterally - Psychiatric Psychiatric: Present: A&O x's 3 - Allied health notes Allied health notes reviewed: nursing - Labs CBC & Chem 7: 12/08/17 07:47 12/08/17 07:47 Labs: Abnormal Lab Results - Last 24 Hours (Table) 12/08/17 12/08/17 Range/Units 07:47 07:47 Hgb 10.4 L (11.4-16.0) gm/dL Hct 33.7 L (34.0-46.0) % MCV 73.9 L (80.0-100.0) fL MCH 22.8 L (25.0-35.0) pg MCHC 30.9 L (31.0-37.0) g/dL RDW 15.9 H (11.5-15.5) % Glucose 100 H (74-99) mg/dL Albumin 3.1 L (3.5-5.0) g/dL Microbiology - Last 24 Hours (Table) 12/06/17 15:08 Gram Stain - Preliminary Foot - Left Tissue Culture - Preliminary Gram Neg Bacilli Gram Neg Bacilli#2 Group D Enterococcus 12/05/17 16:07 Blood Culture - Preliminary Blood No Growth after 48 hours 12/05/17 15:45 Blood Culture - Preliminary Blood No Growth after 48 hours Assessment and Plan (1) Chronic ulcer of left foot with fat layer exposed Current Visit: No Status: Acute Code(s): L97.522 - NON-PRS CHRONIC ULCER OTH PRT LEFT FOOT W FAT LAYER EXPOSED SNOMED Code(s): 655139338 Plan: 1. Continue wound VAC to left lower extremity, to be changed Monday, Monday , Monday. Leg should be wrapped with an Nilay wrap for compression. 2. Right lower extremity dressing change with absorptive silver, Kerlix, Nilay wrap from toes to knees for compression. 3. Bilateral lower extremities should be elevated the majority of the time. 4. Pain control, management of other comorbidities per primary care service. 5. Patient will require ECF placement at discharge. She can follow in the wound care center weekly. 6. Patient may be discharged from our standpoint whenever okay with other specialties. Time with Patient: Greater than 30
[2017-12-08] MEDS: HYDROcodone/APAP 5-325MG 1 EACH TAB PO PRN (22:45)
[2017-12-09] MEDS: NYSTATIN 100,000 UNIT/GM POWD 15 GM TOPICAL SCH ×4 (00:03→23:16)
[2017-12-09] MEDS: SODIUM CHLORIDE 0.9% 1,000 ML IV SCH ×2 (00:04→19:07)
[2017-12-09] MEDS: HYDROmorphone 1 MG/ML 1 ML SYRINGE IVP PRN ×3 (00:33→20:38)
[2017-12-09] MEDS: ceFAZolin IN SWFI 2 GM/20 ML SYRINGE IVP SCH ×4 (00:36→23:42)
[2017-12-09] MEDS: HYDROcodone/APAP 5-325MG 1 EACH TAB PO PRN ×2 (06:16→23:16)
[2017-12-09] MEDS: SYMBICORT 80-4.5 MCG INHALER INHALATION SCH ×2 (07:30→19:27)
[2017-12-09 08:18] LABS: Albumin 3.4 g/dL (3.5-5.0); Calcium 8.7 mg/dL (8.4-10.2); Potassium 4.4 mmol/L (3.5-5.1); Total Bilirubin 0.8 mg/dL (0.2-1.3); Total Protein 7.5 g/dL (6.3-8.2)
[2017-12-09] MEDS: POTASSIUM CHLORIDE ER 20 MEQ TAB.ER PO SCH ×2 (09:00→20:38)
[2017-12-09] MEDS: OXYBUTYNIN XL 5 MG TAB.ER.24 PO SCH (09:00)
[2017-12-09] MEDS: PANTOPRAZOLE 40 MG TABLET PO SCH (09:00)
[2017-12-09] MEDS: FERROUS SULFATE 325 MG TAB PO SCH ×2 (09:01→20:38)
[2017-12-09] MEDS: BUMETANIDE 1 MG TAB PO SCH ×2 (09:01→20:38)
[2017-12-09] MEDS: amLODIPine 5 MG TAB PO SCH (09:01)
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
[2017-12-09 11:25] LABS: Basophils % (A) 1 %; Eosinophils # (A) 0.3 k/uL (0-0.7); Eosinophils % (A) 4 %; HCT 37.8 % (34.0-46.0); HGB 11.5 gm/dL (11.4-16.0); Hypochromasia Marked; Lymphocytes # (A) 1.1 k/uL (1.0-4.8); Lymphocytes % (A) 16 %; MCH 22.9 pg (25.0-35.0); MCHC 30.5 g/dL (31.0-37.0); MCV 75.2 fL (80.0-100.0); Mean Platelet Volume 6.7; Microcytosis Slight; Monocytes # (A) 0.8 k/uL (0-1.0); Monocytes % (A) 11 %; Neutrophils # (A) 4.8 k/uL (1.3-7.7); Neutrophils % (A) 68 %; Platelet Count 390 k/uL (150-450); RBC 5.02 m/uL (3.80-5.40); RDW 15.6 % (11.5-15.5); WBC 7.1 k/uL (3.8-10.6)
--- NOTE | 2017-12-09 13:08 | P.PN ---
Subjective Progress Note Date: 12/09/17 his is a 57-year-old female, patient of Dr. Lo. She has a known past medical history of cerebral palsy with chronic gait disturbance, chronic bilateral lower extremity lymphedema, chronic venous insufficiency, asthma, hypertension and depression. Patient was at the wound care center seen Dr. Ellsworth for evaluation of the bilateral lower extremity ulcers. Patient was seen in the wound care center and was directly admitted to the hospital by Dr. Ellsworth under Dr. Etienne's service. Dr. Ellsworth I will be proceeding with an I&D tomorrow of the left foot. Patient's has been having drainage from the left foot. Also, per Dr. Ellsworth she apparently injured the dorsum of her left foot. Patient is a poor historian. She is unable to tell me if she's had injury to her feet. Apparently she has not been taking her medications at home. She has run out of them and was having difficulty getting refills. Social work has been consulted as well. Patient may need placement. Patient denies any chest pain or shortness of breath. Denies any nausea or vomiting. Denies any bowel movement changes or urinary symptoms. Denies any fever or chills or sweats. She does report finding a Magette on the left heel. She was able to remove it. She reports tolerating Dr. Ellsworth about this. Legs are currently wrapped. They were wrapped at the wound care center. I have not been able to visualize the legs. However, the left foot does have drainage seeping through that is foul smelling. Keflex has been ordered. Infectious disease has been consulted. Patient denies any history of diabetes. She does report pain in her feet. 12/06/2017 patient is status post debridement of left foot with Dr. Laws. Patient denies chest pain or shortness of breath. Denies nausea, vomiting or diarrhea. Denies any urinary burning or frequency 12/07/2017 patient scheduled for bone scan today. Also scheduled for wound VAC placement on the left foot. Pain is tolerable. Discussed with infectious disease they've adjusted antibiotics to Kefzol 2 g IV every 8 hours. Cultures are pending. Patient does have evidence of iron deficiency anemia placed on iron supplement. Hemoglobin 10.2. Will switch patient to oral pain medication in anticipation for discharge to [facility] soon. 12/08/2018 patient lying in bed comfortably. Reporting now that her pain is controlled. She had wound VAC placed yesterday. Bone scan completed showing no osteomyelitis is evidence of cellulitis of the left foot. Left foot tissue culture growing gram-negative bacilli and group D enterococcus. Infectious diseasewith surgery are following. Patient seen by Dr. Joseph awaiting physical therapy input for his final decision by patient. Patient reports she is passing gas no bowel movement yet. Denies any burning with urination. Did have some nausea earlier today. Was able to eat. No actual vomiting. On 12/09/2017 patient is alert and oriented 3 in no apparent distress she is complaining of pain in her left foot and her right heel area otherwise she denies any complaints she was admitted with cellulitis was large ulcer on the left foot she is maintained on IV cefazolin and wound VAC to the left foot Dr. Hunter infectious disease is following. Otherwise patient denies any other complaints there is no chest pain or shortness of breath no cough no nausea or vomiting no abdominal pain and no urinary symptoms. Objective - Vital Signs Vital signs: Vital Signs Temp 99.2 F 12/09/17 07:00 Pulse 71 12/09/17 07:00 Resp 20 12/09/17 07:00 BP 117/74 12/09/17 07:00 Pulse Ox 94 L 12/09/17 07:00 Intake & Output 12/08/17 12/09/17 12/09/17 18:59 06:59 18:59 Intake Total 600 Balance 600 Weight 102 kg Intake: Oral 600 Other: Voiding Method Bedpan Bedpan Incontinent Diaper Incontinent # Voids 5 2 2 # Bowel Movements 0 - Exam Head normocephalic and atraumatic Neck supple no JVD no goiter Lungs clear to auscultation bilaterally no wheezing or crackles Heart regular rate and rhythm S1-S2, no rub or gallop Abdomen is soft nontender nondistended positive bowel sounds no hepatosplenomegaly Extremities legs are Nilay wrap. Left foot wound VAC in place Neuro alert and orientated to 3 - Labs CBC & Chem 7: 12/09/17 11:00 12/09/17 07:07 Labs: Abnormal Lab Results - Last 24 Hours (Table) 12/09/17 12/09/17 Range/Units 07:07 11:00 MCV 75.2 L (80.0-100.0) fL MCH 22.9 L (25.0-35.0) pg MCHC 30.5 L (31.0-37.0) g/dL RDW 15.6 H (11.5-15.5) % Chloride 97 L (98-107) mmol/L Albumin 3.4 L (3.5-5.0) g/dL Microbiology - Last 24 Hours (Table) 12/06/17 15:08 Gram Stain - Preliminary Foot - Left Tissue Culture - Preliminary Citrobacter braakii Klebsiella oxytoca Enterococcus faecalis Presumptive Staph aureus Proteus Species 12/05/17 16:07 Blood Culture - Preliminary Blood No Growth after 72 hours 12/05/17 15:45 Blood Culture - Preliminary Blood No Growth after 72 hours Assessment and Plan Plan: 1. Bilateral lower extremity ulcers with a traumatic left foot ulcer. Status post debridement of the left foot by Dr. Ellsworth. Patient status post wound VAC placement to the left foot. Continue Kefzol for IV antibiotics. Infectious disease is following. Culture growing gram-negative bacilli and group D enterococcus. Bone scan showed no evidence of osteomyelitis did reveal cellulitis of the left foot. Awaiting wound cultures to be finalized and further antibiotic recommendations 2. Chronic Lymphedema of bilateral lower extremities 3. History of cerebral palsy with chronic gait disturbance 4. Chronic venous insufficiency 5. Mild intermittent asthma 6. Essential hypertension 7. Iron deficiency anemia: Start ferrous sulfate 325 mg twice a day. Iron low at 19 8. Moderate to severe protein calorie malnutrition: Albumin 2.7. Start ensure 1 can 3 times a day with meals Consult Dr. Bennett for possible inpatient rehab Social work and physical therapy following. Patient will require placement at time of discharge.
[2017-12-09] MEDS: ALBUTEROL NEBULIZED 2.5 MG/3 ML INHALATION PRN (19:27)
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
[2017-12-10] MEDS: ceFAZolin IN SWFI 2 GM/20 ML SYRINGE IVP SCH ×3 (08:05→23:27)
[2017-12-10] MEDS: SYMBICORT 80-4.5 MCG INHALER INHALATION SCH ×2 (08:15→19:56)
[2017-12-10] MEDS: OXYBUTYNIN XL 5 MG TAB.ER.24 PO SCH (08:33)
[2017-12-10] MEDS: BUMETANIDE 1 MG TAB PO SCH ×2 (08:33→20:09)
[2017-12-10] MEDS: POTASSIUM CHLORIDE ER 20 MEQ TAB.ER PO SCH ×2 (08:33→20:10)
[2017-12-10] MEDS: PANTOPRAZOLE 40 MG TABLET PO SCH (08:33)
[2017-12-10] MEDS: FERROUS SULFATE 325 MG TAB PO SCH ×2 (08:33→20:10)
[2017-12-10] MEDS: amLODIPine 5 MG TAB PO SCH (08:33)
[2017-12-10] MEDS: NYSTATIN 100,000 UNIT/GM POWD 15 GM TOPICAL SCH ×3 (08:38→20:12)
[2017-12-10] MEDS: HYDROmorphone 1 MG/ML 1 ML SYRINGE IVP PRN ×2 (09:35→20:21)
[2017-12-10] MEDS ORDERED: LACTULOSE 20 GM/30 ML CUP PO ONE (10:05)
--- NOTE | 2017-12-10 10:29 | P.PN ---
Subjective Progress Note Date: 12/10/17 his is a 57-year-old female, patient of Dr. Lo. She has a known past medical history of cerebral palsy with chronic gait disturbance, chronic bilateral lower extremity lymphedema, chronic venous insufficiency, asthma, hypertension and depression. Patient was at the wound care center seen Dr. Ellsworth for evaluation of the bilateral lower extremity ulcers. Patient was seen in the wound care center and was directly admitted to the hospital by Dr. Ellsworth under Dr. Etienne's service. Dr. Ellsworth I will be proceeding with an I&D tomorrow of the left foot. Patient's has been having drainage from the left foot. Also, per Dr. Ellsworth she apparently injured the dorsum of her left foot. Patient is a poor historian. She is unable to tell me if she's had injury to her feet. Apparently she has not been taking her medications at home. She has run out of them and was having difficulty getting refills. Social work has been consulted as well. Patient may need placement. Patient denies any chest pain or shortness of breath. Denies any nausea or vomiting. Denies any bowel movement changes or urinary symptoms. Denies any fever or chills or sweats. She does report finding a Magette on the left heel. She was able to remove it. She reports tolerating Dr. Ellsworth about this. Legs are currently wrapped. They were wrapped at the wound care center. I have not been able to visualize the legs. However, the left foot does have drainage seeping through that is foul smelling. Keflex has been ordered. Infectious disease has been consulted. Patient denies any history of diabetes. She does report pain in her feet. 12/06/2017 patient is status post debridement of left foot with Dr. Laws. Patient denies chest pain or shortness of breath. Denies nausea, vomiting or diarrhea. Denies any urinary burning or frequency 12/07/2017 patient scheduled for bone scan today. Also scheduled for wound VAC placement on the left foot. Pain is tolerable. Discussed with infectious disease they've adjusted antibiotics to Kefzol 2 g IV every 8 hours. Cultures are pending. Patient does have evidence of iron deficiency anemia placed on iron supplement. Hemoglobin 10.2. Will switch patient to oral pain medication in anticipation for discharge to [facility] soon. 12/08/2018 patient lying in bed comfortably. Reporting now that her pain is controlled. She had wound VAC placed yesterday. Bone scan completed showing no osteomyelitis is evidence of cellulitis of the left foot. Left foot tissue culture growing gram-negative bacilli and group D enterococcus. Infectious diseasewith surgery are following. Patient seen by Dr. Joseph awaiting physical therapy input for his final decision by patient. Patient reports she is passing gas no bowel movement yet. Denies any burning with urination. Did have some nausea earlier today. Was able to eat. No actual vomiting. On 12/09/2017 patient is alert and oriented 3 in no apparent distress she is complaining of pain in her left foot and her right heel area otherwise she denies any complaints she was admitted with cellulitis was large ulcer on the left foot she is maintained on IV cefazolin and wound VAC to the left foot Dr. Hunter infectious disease is following. Otherwise patient denies any other complaints there is no chest pain or shortness of breath no cough no nausea or vomiting no abdominal pain and no urinary symptoms. On 12/10/2017 patient is alert and oriented 3 in no distress complaining of constipation complaining of pain in her feet, otherwise she denies any complaints, she had an episode of low-grade fever this morning at 100.8, there was no chills no headache or dizziness no chest pain or shortness of breath no cough no nausea or vomiting no abdominal pain and no urinary symptoms. Objective - Vital Signs Vital signs: Vital Signs Temp 98.5 F 12/10/17 07:27 Pulse 87 12/10/17 07:27 Resp 18 12/10/17 07:27 BP 106/73 12/10/17 07:27 Pulse Ox 98 12/10/17 07:27 Intake & Output 12/09/17 12/10/17 12/10/17 18:59 06:59 18:59 Intake Total 300 Balance 300 Intake: Oral 300 Other: Voiding Method Bedpan Bedpan Diaper Diaper Incontinent Incontinent # Voids 1 1 # Bowel Movements 0 - Exam Head normocephalic and atraumatic Neck supple no JVD no goiter Lungs clear to auscultation bilaterally no wheezing or crackles Heart regular rate and rhythm S1-S2, no rub or gallop Abdomen is soft nontender nondistended positive bowel sounds no hepatosplenomegaly Extremities legs are Nilay wrap. Left foot wound VAC in place Neuro alert and orientated to 3 - Labs CBC & Chem 7: 12/09/17 11:00 12/09/17 07:07 Labs: Abnormal Lab Results - Last 24 Hours (Table) 12/09/17 Range/Units 11:00 MCV 75.2 L (80.0-100.0) fL MCH 22.9 L (25.0-35.0) pg MCHC 30.5 L (31.0-37.0) g/dL RDW 15.6 H (11.5-15.5) % Microbiology - Last 24 Hours (Table) 12/06/17 15:08 Anaerobic Culture - Final Foot - Left Anaerobic Gm Negative Bacilli 12/06/17 15:08 Gram Stain - Final Foot - Left Tissue Culture - Final Citrobacter braakii Klebsiella oxytoca Enterococcus faecalis Staphylococcus aureus Proteus Species 12/05/17 16:07 Blood Culture - Preliminary Blood No Growth after 96 hours 12/05/17 15:45 Blood Culture - Preliminary Blood No Growth after 96 hours Assessment and Plan Plan: 1. Bilateral lower extremity ulcers with a traumatic left foot ulcer. Status post debridement of the left foot by Dr. Ellsworth. Patient status post wound VAC placement to the left foot. Continue Kefzol for IV antibiotics. Infectious disease is following. Culture growing gram-negative bacilli and group D enterococcus. Bone scan showed no evidence of osteomyelitis did reveal cellulitis of the left foot. Awaiting wound cultures to be finalized and further antibiotic recommendations 2. Chronic Lymphedema of bilateral lower extremities 3. History of cerebral palsy with chronic gait disturbance 4. Chronic venous insufficiency 5. Mild intermittent asthma 6. Essential hypertension 7. Iron deficiency anemia: Start ferrous sulfate 325 mg twice a day. Iron low at 19 8. Moderate to severe protein calorie malnutrition: Albumin 2.7. Start ensure 1 can 3 times a day with meals Consult Dr. Bennett for possible inpatient rehab Social work and physical therapy following. Patient will require placement at time of discharge.
--- NOTE | 2017-12-10 10:30 | P.PN ---
Progress Note - Text Progress Note Date: 12/10/17 Wound VAC dressing changed. Measurements taken: 6.1 x 5 x 3.5 cm. Granulating tissue noted around wound edges. Some yellow sloughing noted to the center of the wound. One piece of black granular foam placed to wound and secured with clear dressing. Wound VAC settings reinitiated as ordered. Nilay wrap applied from toes to just below the knee.
[2017-12-10] MEDS: HYDROcodone/APAP 5-325MG 1 EACH TAB PO PRN (17:44)
[2017-12-11 01:11] VITALS: RESP 16
[2017-12-11 07:57] LABS: Basophils % (A) 0 %; Eosinophils # (A) 0.2 k/uL (0-0.7); Eosinophils % (A) 2 %; HCT 37.2 % (34.0-46.0); HGB 11.3 gm/dL (11.4-16.0); Hypochromasia Slight; Lymphocytes # (A) 1.6 k/uL (1.0-4.8); Lymphocytes % (A) 21 %; MCH 22.3 pg (25.0-35.0); MCHC 30.5 g/dL (31.0-37.0); MCV 73.2 fL (80.0-100.0); Microcytosis Slight; Monocytes # (A) 0.8 k/uL (0-1.0); Monocytes % (A) 11 %; Neutrophils # (A) 4.7 k/uL (1.3-7.7); Neutrophils % (A) 63 %; Platelet Count 383 k/uL (150-450); RBC 5.08 m/uL (3.80-5.40); RDW 15.8 % (11.5-15.5); WBC 7.5 k/uL (3.8-10.6)
[2017-12-11 08:35] LABS: Albumin 3.4 g/dL (3.5-5.0); Calcium 8.8 mg/dL (8.4-10.2); Total Protein 7.5 g/dL (6.3-8.2)
[2017-12-11] MEDS: SYMBICORT 80-4.5 MCG INHALER INHALATION SCH ×2 (09:10→20:31)
[2017-12-11] MEDS: amLODIPine 5 MG TAB PO SCH (09:51)
[2017-12-11] MEDS: FERROUS SULFATE 325 MG TAB PO SCH ×2 (09:51→20:38)
[2017-12-11] MEDS: BUMETANIDE 1 MG TAB PO SCH ×2 (09:51→20:38)
[2017-12-11] MEDS: ceFAZolin IN SWFI 2 GM/20 ML SYRINGE IVP SCH (09:51)
[2017-12-11] MEDS: OXYBUTYNIN XL 5 MG TAB.ER.24 PO SCH (09:51)
[2017-12-11] MEDS: PANTOPRAZOLE 40 MG TABLET PO SCH (09:51)
[2017-12-11] MEDS: POTASSIUM CHLORIDE ER 20 MEQ TAB.ER PO SCH ×2 (09:52→20:38)
--- NOTE | 2017-12-11 13:35 | P.PN ---
Subjective Progress Note Date: 12/11/17 his is a 57-year-old female, patient of Dr. Lo. She has a known past medical history of cerebral palsy with chronic gait disturbance, chronic bilateral lower extremity lymphedema, chronic venous insufficiency, asthma, hypertension and depression. Patient was at the wound care center seen Dr. Ellsworth for evaluation of the bilateral lower extremity ulcers. Patient was seen in the wound care center and was directly admitted to the hospital by Dr. Ellsworth under Dr. Etienne's service. Dr. Ellsworth I will be proceeding with an I&D tomorrow of the left foot. Patient's has been having drainage from the left foot. Also, per Dr. Ellsworth she apparently injured the dorsum of her left foot. Patient is a poor historian. She is unable to tell me if she's had injury to her feet. Apparently she has not been taking her medications at home. She has run out of them and was having difficulty getting refills. Social work has been consulted as well. Patient may need placement. Patient denies any chest pain or shortness of breath. Denies any nausea or vomiting. Denies any bowel movement changes or urinary symptoms. Denies any fever or chills or sweats. She does report finding a Magette on the left heel. She was able to remove it. She reports tolerating Dr. Ellsworth about this. Legs are currently wrapped. They were wrapped at the wound care center. I have not been able to visualize the legs. However, the left foot does have drainage seeping through that is foul smelling. Keflex has been ordered. Infectious disease has been consulted. Patient denies any history of diabetes. She does report pain in her feet. 12/06/2017 patient is status post debridement of left foot with Dr. Laws. Patient denies chest pain or shortness of breath. Denies nausea, vomiting or diarrhea. Denies any urinary burning or frequency 12/07/2017 patient scheduled for bone scan today. Also scheduled for wound VAC placement on the left foot. Pain is tolerable. Discussed with infectious disease they've adjusted antibiotics to Kefzol 2 g IV every 8 hours. Cultures are pending. Patient does have evidence of iron deficiency anemia placed on iron supplement. Hemoglobin 10.2. Will switch patient to oral pain medication in anticipation for discharge to [facility] soon. 12/08/2018 patient lying in bed comfortably. Reporting now that her pain is controlled. She had wound VAC placed yesterday. Bone scan completed showing no osteomyelitis is evidence of cellulitis of the left foot. Left foot tissue culture growing gram-negative bacilli and group D enterococcus. Infectious diseasewith surgery are following. Patient seen by Dr. Joseph awaiting physical therapy input for his final decision by patient. Patient reports she is passing gas no bowel movement yet. Denies any burning with urination. Did have some nausea earlier today. Was able to eat. No actual vomiting. 12/11/2017 patient had wound VAC changed yesterday. Did have a low-grade temp 100.5 yesterday afternoon. Wound culture polymicrobial. Case discussed with infectious disease nurse practitioner. Awaiting their further recommendations about possible discharge antibiotics. Patient will require either ECF or inpatient rehab at time of discharge. Patient reports that her pain is controlled at this time. Did require IV Dilaudid with wound VAC changing. Patient passing gas no bowel movement yet. We'll add stool softener. Denies chest pain or shortness of breath. Denies any bone pain. Denies any burning speech. Requiring assistance to get up to the bedside commode. Objective - Vital Signs Vital signs: Vital Signs Temp 98.3 F 12/11/17 07:00 Pulse 76 12/11/17 07:00 Resp 16 12/11/17 07:00 BP 110/71 12/11/17 07:00 Pulse Ox 93 L 12/11/17 07:00 Intake & Output 12/10/17 12/11/17 12/11/17 18:59 06:59 18:59 Other: # Voids 2 3 # Bowel Movements 0 - Exam Head normocephalic Neck supple Lungs clear to auscultation bilaterally no wheezing or crackles Heart regular rate and rhythm S1-S2, no rub or gallop Abdomen is soft nontender nondistended positive bowel sounds no hepatosplenomegaly Extremities legs are Nilay wrap. Left foot wound VAC in place Neuro alert and orientated to 3 - Labs CBC & Chem 7: 12/11/17 07:36 12/11/17 07:36 Labs: Abnormal Lab Results - Last 24 Hours (Table) 12/11/17 12/11/17 Range/Units 07:36 07:36 Hgb 11.3 L (11.4-16.0) gm/dL MCV 73.2 L (80.0-100.0) fL MCH 22.3 L (25.0-35.0) pg MCHC 30.5 L (31.0-37.0) g/dL RDW 15.8 H (11.5-15.5) % Sodium 136 L (137-145) mmol/L Chloride 97 L (98-107) mmol/L BUN 19 H (7-17) mg/dL Glucose 107 H (74-99) mg/dL ALT 8 L (9-52) U/L Albumin 3.4 L (3.5-5.0) g/dL Microbiology - Last 24 Hours (Table) 12/05/17 16:07 Blood Culture - Preliminary Blood No Growth after 120 hours 12/05/17 15:45 Blood Culture - Preliminary Blood No Growth after 120 hours Assessment and Plan Assessment: 1. Bilateral lower extremity ulcers with a traumatic left foot ulcer. Status post debridement of the left foot by Dr. Ellsworth. Patient status post wound VAC placement to the left foot. Continue Kefzol for IV antibiotics. Infectious disease is following. Culture growing multiple organisms. Bone scan showed no evidence of osteomyelitis did reveal cellulitis of the left foot. Awaiting antibiotic recommendations per ID 2. Chronic Lymphedema of bilateral lower extremities 3. History of cerebral palsy with chronic gait disturbance 4. Chronic venous insufficiency 5. Mild intermittent asthma 6. Essential hypertension 7. Iron deficiency anemia: Start ferrous sulfate 325 mg twice a day. Iron low at 19 8. Moderate to severe protein calorie malnutrition: Albumin 2.7. Start ensure 1 can 3 times a day with meals Anticipate discharge possibly tomorrow to [facility] Awaiting ID antibiotic recommendations I performed an examination of the patient and discussed their management with the physician Dairy Nutritionist. I have reviewed the Physician Dairy Nutritionist's notes and agree with the documented findings and plan of care
[2017-12-11] MEDS ORDERED: LACTULOSE 20 GM/30 ML CUP PO ONE (13:42)
[2017-12-11] MEDS: NYSTATIN 100,000 UNIT/GM POWD 15 GM TOPICAL SCH ×3 (15:23→20:40)
[2017-12-11] MEDS: PIPERACILLIN-TAZOBACTAM 3.375 GM in DEXTROSE/WATER 1 50ML.BAG IVPB SCH (18:09)
[2017-12-11] MEDS: DOCUSATE 100 MG CAP PO SCH (20:38)
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
[2017-12-12] MEDS: PIPERACILLIN-TAZOBACTAM 3.375 GM in DEXTROSE/WATER 1 50ML.BAG IVPB SCH ×2 (00:57→09:10)
[2017-12-12 05:45] VITALS: BP 125/70; PULSE 78; TEMP 97.8
[2017-12-12] MEDS: SYMBICORT 80-4.5 MCG INHALER INHALATION SCH (08:51)
[2017-12-12] MEDS: amLODIPine 5 MG TAB PO SCH (10:41)
[2017-12-12] MEDS: FERROUS SULFATE 325 MG TAB PO SCH (10:41)
[2017-12-12] MEDS: DOCUSATE 100 MG CAP PO SCH (10:42)
[2017-12-12] MEDS: BUMETANIDE 1 MG TAB PO SCH (10:42)
[2017-12-12] MEDS: PANTOPRAZOLE 40 MG TABLET PO SCH (10:42)
[2017-12-12] MEDS: OXYBUTYNIN XL 5 MG TAB.ER.24 PO SCH (10:42)
[2017-12-12] MEDS: POTASSIUM CHLORIDE ER 20 MEQ TAB.ER PO SCH (10:43)
[2017-12-12] MEDS ORDERED: NA PHOS,M-B/NA PHOS,DI-BA 133 ML ENEMA RECTAL ONE (13:34)
[2017-12-12] MEDS ORDERED: LACTULOSE 20 GM/30 ML CUP PO ONE (13:34)
--- NOTE | 2017-12-12 14:09 | P.DS ---
Providers Date of admission: 12/05/17 11:31 Expected date of discharge: 12/12/17 Attending physician: Deric Etienne Consults: 12/05/17 13:17 Consult Physician Routine Consulting Provider: Cesar Hunter Consult Reason/Comments: left lower extremity ulcer, antibiotic recommendation Do you want consulting provider notified?: Yes Consult Physician Routine Consulting Provider: Dre Ellsworth Consult Reason/Comments: bilateral foot wounds Do you want consulting provider notified?: Already Contacted 12/07/17 11:47 Consult Physician Routine Consulting Provider: Lb Bennett Consult Reason/Comments: [facility] IP rehab Do you want consulting provider notified?: Yes 12/07/17 12:18 Consult Physician Routine Consulting Provider: Lb Bennett Consult Reason/Comments: inpatient rehab Do you want consulting provider notified?: Yes Primary care physician: Deric Etienne [facility] Course: Discharge diagnosis 1. Bilateral lower extremity ulcers with a traumatic left foot ulcer. Status post debridement of the left foot by Dr. Ellsworth. Patient status post wound VAC placement to the left foot. Infectious disease is following. Culture growing multiple organisms. Bone scan showed no evidence of osteomyelitis did reveal cellulitis of the left foot. Infectious disease recommending IV Zosyn dispensing 56 doses via PICC line 2. Chronic Lymphedema of bilateral lower extremities 3. History of cerebral palsy with chronic gait disturbance 4. Chronic venous insufficiency 5. Mild intermittent asthma 6. Essential hypertension 7. Iron deficiency anemia: Start ferrous sulfate 325 mg twice a day. Iron low at 19 8. Moderate to severe protein calorie malnutrition: Albumin 2.7. Start ensure 1 can 3 times a day with meals 9. History of vitamin D deficiency. Unclear if patient completed her 50,000 units of vitamin D weekly. Recommend checking vitamin D level at usp to further dose vitamin D2 medication Hospital course this is a 57-year-old female, patient of Dr. Lo. She has a known past medical history of cerebral palsy with chronic gait disturbance, chronic bilateral lower extremity lymphedema, chronic venous insufficiency, asthma, hypertension and depression. Patient was at the wound care center seen Dr. Ellsworth for evaluation of the bilateral lower extremity ulcers. Patient was seen in the wound care center and was directly admitted to the hospital by Dr. Ellsworth under Dr. Etienne's service. Dr. Ellsworth I will be proceeding with an I&D tomorrow of the left foot. Patient's has been having drainage from the left foot. Also, per Dr. Ellsworth she apparently injured the dorsum of her left foot. Patient is a poor historian. She is unable to tell me if she's had injury to her feet. Apparently she has not been taking her medications at home. She has run out of them and was having difficulty getting refills. Social work has been consulted as well. Patient may need placement. Patient denies any chest pain or shortness of breath. Denies any nausea or vomiting. Denies any bowel movement changes or urinary symptoms. Denies any fever or chills or sweats. She does report finding a Magette on the left heel. She was able to remove it. She reports tolerating Dr. Ellsworth about this. Legs are currently wrapped. They were wrapped at the wound care center. I have not been able to visualize the legs. However, the left foot does have drainage seeping through that is foul smelling. Keflex has been ordered. Infectious disease has been consulted. Patient denies any history of diabetes. She does report pain in her feet. 12/06/2017 patient is status post debridement of left foot with Dr. Laws. Patient denies chest pain or shortness of breath. Denies nausea, vomiting or diarrhea. Denies any urinary burning or frequency 12/07/2017 patient scheduled for bone scan today. Also scheduled for wound VAC placement on the left foot. Pain is tolerable. Discussed with infectious disease they've adjusted antibiotics to Kefzol 2 g IV every 8 hours. Cultures are pending. Patient does have evidence of iron deficiency anemia placed on iron supplement. Hemoglobin 10.2. Will switch patient to oral pain medication in anticipation for discharge to [facility] soon. 12/08/2018 patient lying in bed comfortably. Reporting now that her pain is controlled. She had wound VAC placed yesterday. Bone scan completed showing no osteomyelitis is evidence of cellulitis of the left foot. Left foot tissue culture growing gram-negative bacilli and group D enterococcus. Infectious diseasewith surgery are following. Patient seen by Dr. Joseph awaiting physical therapy input for his final decision by patient. Patient reports she is passing gas no bowel movement yet. Denies any burning with urination. Did have some nausea earlier today. Was able to eat. No actual vomiting. 12/11/2017 patient had wound VAC changed yesterday. Did have a low-grade temp 100.5 yesterday afternoon. Wound culture polymicrobial. Case discussed with infectious disease nurse practitioner. Awaiting their further recommendations about possible discharge antibiotics. Patient will require either ECF or inpatient rehab at time of discharge. Patient reports that her pain is controlled at this time. Did require IV Dilaudid with wound VAC changing. Patient passing gas no bowel movement yet. We'll add stool softener. Denies chest pain or shortness of breath. Denies any bone pain. Denies any burning speech. Requiring assistance to get up to the bedside commode. 12/12/2017 patient is medically stable for discharge. She has wound VAC in place. PICC line is also in place and she is receiving IV Zosyn for antibiotic treatment of the bilateral wound infection. The left foot did undergo debridement with Dr. Ellsworth during this hospitalization. Culture had grown multiple organisms. And infectious diseases recommending IV Zosyn. Patient also will be given a perception for Superior to help with pain in the left foot when wound VAC needs to be changed. Patient has been cleared by consulting physicians for discharge. Recommend checking CBC, BMP and vitamin D level in 3 days. Patient is medical stable to be discharged to [facility]. Dr. Etienne will follow at [facility] Follow-up wound care center in one week I performed an examination of the patient and discussed their management with the physician Slate Trimmer. I have reviewed the Physician Slate Trimmer's notes and agree with the documented findings and plan of care Patient Condition at Discharge: Stable Plan - Discharge Summary Discharge Rx Participant: No New Discharge Prescriptions: New Piperacillin-Tazobactam [Zosyn] 3.375 gm IVPB Q6H #56 bag Docusate [Colace] 100 mg PO BID cap Ferrous Sulfate [Iron (65 MG Elemental)] 325 mg PO BID tab Nystatin 100,000 Unit/gm Powd [Mycostatin Powder] 1 applic TOPICAL TID applic HYDROcodone/APAP 10-325MG [Superior 10-325] 1 tab PO Q6HR PRN 3 Days #12 tab PRN Reason: Pain Continue amLODIPine [Norvasc] 5 mg PO DAILY Tolterodine Tartrate [Detrol LA] 4 mg PO DAILY Bumetanide [BUMEX] 1 mg PO BID Potassium Chloride [Klor-Con 20] 20 meq PO TID Cetirizine HCl [Zyrtec] 10 mg PO DAILY Fluticasone/Salmeterol [Advair 250-50 Diskus] 1 inhalation PO RT-BID Omeprazole [PriLOSEC] 20 mg PO BID Albuterol Inhaler [Ventolin Hfa Inhaler] 2 puff INHALATION RT-Q6H PRN PRN Reason: Shortness Of Breath Discontinued Ergocalciferol [Vitamin D2] 50,000 unit PO Q7D Furosemide [Lasix] 20 mg PO DAILY Lidocaine 5% Patch [Lidoderm] 1 patch TOPICAL DAILY Discharge Medication List Albuterol Inhaler [Ventolin Hfa Inhaler] 2 puff INHALATION RT-Q6H PRN 12/05/17 [ History] Bumetanide [BUMEX] 1 mg PO BID 12/05/17 [History] Cetirizine HCl [Zyrtec] 10 mg PO DAILY 12/05/17 [History] Fluticasone/Salmeterol [Advair 250-50 Diskus] 1 inhalation PO RT-BID 12/05/17 [ History] Omeprazole [PriLOSEC] 20 mg PO BID 12/05/17 [History] Potassium Chloride [Klor-Con 20] 20 meq PO TID 12/05/17 [History] Tolterodine Tartrate [Detrol LA] 4 mg PO DAILY 12/05/17 [History] amLODIPine [Norvasc] 5 mg PO DAILY 12/05/17 [History] Piperacillin-Tazobactam [Zosyn] 3.375 gm IVPB Q6H #56 bag 12/11/17 [Rx] Docusate [Colace] 100 mg PO BID cap 12/12/17 [Rx] Ferrous Sulfate [Iron (65 MG Elemental)] 325 mg PO BID tab 12/12/17 [Rx] HYDROcodone/APAP 10-325MG [Superior 10-325] 1 tab PO Q6HR PRN 3 Days #12 tab [Rx] Nystatin 100,000 Unit/gm Powd [Mycostatin Powder] 1 applic TOPICAL TID applic 12/12/17 [Rx] Follow up Appointment(s)/Referral(s): [facility],. [NON-STAFF] - 1 Week (Patient should follow up in the wound care center weekly.) Patient Instructions/Handouts: Acute Wounds (DC) Activity/Diet/Wound Care/Special Instructions: 1. Bilateral lower extremities should be elevated at all times. 2. Wound VAC to be changed every Monday, Monday, Monday. Nilay wrap for compression to left leg, toes to knees. 3. Right lower extremity wounds to be covered with absorptive silver and Nilay wrap from toes to knees daily. Diet cardiac Activity as tolerated Recommend checking CBC, BMP and vitamin D level in 3 days Discharge Disposition: TRANSFER TO SNF/ECF
[2017-12-12] MEDS: HYDROcodone/APAP 5-325MG 1 EACH TAB PO PRN (14:29)
--- NOTE | 2017-12-13 15:00 | CDI ---
Last Revision, February 2017 Documentation Clarification Form Date: 12/13/17 From: Shaniqua Jasvir Hoa Trevino, Intelligence Analyst Hours-8:30 am & 5 pm Michael Admit Date: 12/05/2017 11:31:00 AM Patient Name: Caterina Enriquez Visit Number: [id number] Discharge Date: 12/12/17 ATTENTION: The Clinical Documentation Specialists (CDI) and [facility] Coding Staff appreciate your assistance in clarifying documentation. Please respond to the clarification below the line at the bottom and electronically sign. The CDI & [facility] Coding staff will review the response and follow-up if needed. Please note: Queries are made part of the Legal Health Record. If you have any questions, please contact the author of this message via ITS. Deric Christina MD Patient admitted w traumatic ulcer dorsum left foot and chronic stasis ulcer per procedure note, H&P, PNs & DS. Patient history/risk factors: cerebral palsy-spastic diplegic, morbid obesity, lymphedema bilaterally lower ext Nursing Wound assessment: erythema, purulent Other Clinical Indicators: Treatment: excisional debridement of subcutaneous of left foot dorsum In your professional opinion, can the severity of the wound (on admission) be further specified as one of the following? Severity on admission: Limited to breakdown of skin With fat layer exposed With necrosis of muscle With necrosis of bone Other, Please specify Unable to determine Please continue to document in your progress notes and discharge summary in order to capture severity of illness and risk of mortality. Include clinical findings that support your diagnosis. with fat layer exposed MTDD
== END 2017-12-12 16:15 | DRG 570 ==
LOC: 4MS4W 11:31
PROVIDERS: ADMIT Internal Medicine; ATTEND Internal Medicine
PROC: 0JBR0ZZ Excision of Left Foot Subcutaneous Tissue and Fascia, Open Approach (ICD-10-PCS; principal; 2017-12-06 13:45)
DX: L97.422 Non-pressure chronic ulcer of left heel and midfoot with fat layer exposed (principal); E43 Unspecified severe protein-calorie malnutrition; G80.1 Spastic diplegic cerebral palsy; Z68.41 Body mass index [BMI] 40.0-44.9, adult; L03.116 Cellulitis of left lower limb; L97.819 Non-pressure chronic ulcer of other part of right lower leg with unspecified severity; E66.01 Morbid (severe) obesity due to excess calories; I83.018 Varicose veins of right lower extremity with ulcer other part of lower leg; D50.9 Iron deficiency anemia, unspecified; I10 Essential (primary) hypertension; I89.0 Lymphedema, not elsewhere classified; I87.8 Other specified disorders of veins; I87.2 Venous insufficiency (chronic) (peripheral); K46.9 Unspecified abdominal hernia without obstruction or gangrene; R26.2 Difficulty in walking, not elsewhere classified; R21 Rash and other nonspecific skin eruption; E55.9 Vitamin D deficiency, unspecified; J45.20 Mild intermittent asthma, uncomplicated; Z71.3 Dietary counseling and surveillance; K21.9 Gastro-esophageal reflux disease without esophagitis; Z79.51 Long term (current) use of inhaled steroids; Z79.899 Other long term (current) drug therapy; Z86.59 Personal history of other mental and behavioral disorders; Z88.2 Allergy status to sulfonamides; Z82.49 Family history of ischemic heart disease and other diseases of the circulatory system; Z80.3 Family history of malignant neoplasm of breast; Z83.3 Family history of diabetes mellitus
CPT/HCPCS: 36569; 71045; 76937; 78315; 80053; 82728; 83540; 83550; 84134; 85025; 86850; 86900; 86901; 87040; 87070; 87075; 87077; 87186; 87205; 88304; 93005; 94640; 94760; 99215

== ENCOUNTER 2018-09-29 18:07 | Inpatient (IN) | payer MEDICARE, OTHER ==
[2018-09-29] MEDS ORDERED: VANCOMYCIN IV PER PHARMACY 1 EACH MISC MISCELLANE PRN (18:58)
[2018-09-29] MEDS ORDERED: PIPERACILLIN-TAZOBACTAM 3.375 GM in SODIUM CHLORIDE 0.9% 100 ML IVPB STA (18:58)
--- NOTE | 2018-09-29 19:03 | ED ---
Lower Extremity Injury HPI - General Chief Complaint: Extremity Injury, Lower Stated Complaint: seeping wound Time Seen by Provider: 09/29/18 18:25 Source: patient, family, RN notes reviewed, old records reviewed Mode of arrival: wheelchair Limitations: no limitations - History of Present Illness Initial Comments: Patient is a 57-year-old female who presents emergency department today for evaluation with complaints of ACP wound from her left dorsum of her foot. Patient reports she has history of lymphedema, chronic leg deformity from . Patient states that she has had a history of cellulitis within her legs and lymphedema past. She states that she's been taking at home amoxicillin 875 for the past 3 days. She reports that she started having increased pain over the dorsum of her foot today. Patient states that she's had no significant fevers or chills. She denies any chest pain, shortness of breath. She denies any abdominal pain changes in urination or bowel habits. Patient reports that she typically ambulates with a wheelchair. - Related Data Home Medications Medication Instructions Recorded Confirmed Albuterol Inhaler [Ventolin Hfa 2 puff INHALATION RT-Q6H PRN 12/05/17 04/02/18 Inhaler] Bumetanide [BUMEX] 1 mg PO BID 12/05/17 04/02/18 Cetirizine HCl [Zyrtec] 10 mg PO DAILY 12/05/17 04/02/18 Fluticasone/Salmeterol [Advair 1 inhalation PO RT-BID 12/05/17 04/02/18 250-50 Diskus] Omeprazole [PriLOSEC] 20 mg PO BID 12/05/17 04/02/18 Potassium Chloride [Klor-Con 20] 20 meq PO TID 12/05/17 04/02/18 amLODIPine [Norvasc] 5 mg PO DAILY 12/05/17 04/02/18 Arginaid Extra 240 ml PO DAILY 12/26/17 04/02/18 Cholecalciferol [Vitamin D3] 1,000 unit PO DAILY 12/26/17 04/02/18 Diazepam [Valium] 5 mg PO BID 12/26/17 04/02/18 Ergocalciferol [Vitamin D2] 50,000 unit PO Q7D 12/26/17 04/02/18 Nystatin 100,000 Unit/gm Powd 1 applic TOPICAL TID 12/26/17 04/02/18 [Mycostatin Powder] Ondansetron [Zofran] 4 mg PO Q6HR PRN 12/26/17 04/02/18 Tolterodine Tartrate [Detrol LA] 4 mg PO DAILY 12/26/17 04/02/18 fentaNYL 25MCG/HR PATCH [Duragesic 25 mcg TRANSDERM Q72H 12/26/17 04/02/18 25MCG/HR] Previous Rx's Medication Instructions Recorded Docusate [Colace] 100 mg PO BID cap 12/12/17 Ferrous Sulfate [Iron (65 MG 325 mg PO BID tab 12/12/17 Elemental)] HYDROcodone/APAP 10-325MG [[place] 1 tab PO Q6HR PRN 3 Days #12 tab 12/12/17 10-325] Allergies Allergy/AdvReac Type Severity Reaction Status Date / Time Sulfa (Sulfonamide AdvReac INDIGESTION Verified 04/02/18 12:00 Antibiotics) Review of Systems ROS Statement: Those systems with pertinent positive or pertinent negative responses have been documented in the HPI. ROS Other: All systems not noted in ROS Statement are negative. Past Medical History Past Medical History: Asthma, GERD/Reflux, Hypertension Additional Past Medical History / Comment(s): Cerebral palsey, bilateeral lower extremity deformities, bilateral lower leg and feet cellulitis, current L foot and R lower leg ulcers, chronic lymphedema, chronic venous insufficiency, gait disturbance, occasional urinary leakage, abdominal hernia, seasonal asthma. History of Any Multi-Drug Resistant Organisms: None Reported Past Surgical History: No Surgical Hx Reported Additional Past Surgical History / Comment(s): Bilateral heel cord lenghtenings, several bilateral leg surgeries for mobility. Past Anesthesia/Blood Transfusion Reactions: No Reported Reaction, Motion Sickness Past Psychological History: Depression Smoking Status: Never smoker Past Alcohol Use History: None Reported Past Drug Use History: None Reported - Past Family History Father Family Medical History: No Reported History Mother Additional Family Medical History / Comment(s): did not obtain information due to patient anxiety during assessment General Exam - General Exam Comments Initial Comments: Alert and oriented 57-year-old female. No significant distress. Limitations: no limitations General appearance: alert, in no apparent distress Head exam: Present: atraumatic, normocephalic, normal inspection Eye exam: Present: normal appearance, PERRL, EOMI. Absent: scleral icterus, conjunctival injection, periorbital swelling ENT exam: Present: normal exam, mucous membranes moist Neck exam: Present: normal inspection. Absent: tenderness, meningismus, lymphadenopathy Respiratory exam: Present: normal lung sounds bilaterally. Absent: respiratory distress, wheezes, rales, rhonchi, stridor Cardiovascular Exam: Present: regular rate, normal rhythm, normal heart sounds. Absent: systolic murmur, diastolic murmur, rubs, gallop, clicks GI/Abdominal exam: Present: soft, normal bowel sounds. Absent: distended, tenderness, guarding, rebound, rigid Extremities exam: Present: normal inspection, full ROM, normal capillary refill, other (Patient has bilateral lower extremity lymphedema. Evidence of cellulitis over the dorsum of the left foot with a area of wound ulceration and seepage over the fourth and fifth metatarsal. ). Absent: tenderness, pedal edema, joint swelling, calf tenderness Back exam: Present: normal inspection Neurological exam: Present: alert, oriented X3, CN II-XII intact Psychiatric exam: Present: normal affect, normal mood Skin exam: Present: warm, dry, intact, normal color. Absent: rash Course Vital Signs 09/29/18 18:17 Temperature 98.7 F Pulse Rate 81 Respiratory 18 Rate Blood Pressure 170/97 O2 Sat by Pulse 96 Oximetry Medical Decision Making - Medical Decision Making Patient is a 57-year-old female with history of lymphedema. She presents emergency room today with bilateral lower extremity swelling worsening over the past few weeks. She presents with a wound over the dorsum of her left foot. She states she's had a significant cellulitis in the past and is followed with Dr. Hunter. At this time Patient has an area of wound over the dorsum of her foot measuring 4 7 m x 5 cm. There is evidence of erythema over bilateral lower extremities. Concern for cellulitis. Patient has been taking amoxicillin out patiently for the past 3 days. At this time Patient was started on Zosyn and vancomycin blood work was revealed to unremarkable. X-rays negative for osteomalacia. Evidence of osteopenia. There is tissue swelling. His case discussed with Dr. Lopez who discussed case with Dr. Prater. Patient will be admitted at this time consult to Dr. Hunter. - Lab Data Result diagrams: 09/29/18 19:30 09/29/18 19:30 Lab Results 09/29/18 09/29/18 09/29/18 Range/Units 19:30 19:30 19:30 WBC 7.8 (3.8-10.6) k/uL RBC 5.43 H (3.80-5.40) m/uL Hgb 15.0 (11.4-16.0) gm/dL Hct 46.5 H (34.0-46.0) % MCV 85.6 (80.0-100.0) fL MCH 27.7 (25.0-35.0) pg MCHC 32.4 (31.0-37.0) g/dL RDW 13.4 (11.5-15.5) % Plt Count 308 (150-450) k/uL Neutrophils % 67 % Lymphocytes % 22 % Monocytes % 7 % Eosinophils % 2 % Basophils % 1 % Neutrophils # 5.2 (1.3-7.7) k/uL Lymphocytes # 1.7 (1.0-4.8) k/uL Monocytes # 0.6 (0-1.0) k/uL Eosinophils # 0.1 (0-0.7) k/uL Basophils # 0.1 (0-0.2) k/uL Sodium 143 (137-145) mmol/L Potassium 3.5 (3.5-5.1) mmol/L Chloride 107 (98-107) mmol/L Carbon Dioxide 21 L (22-30) mmol/L Anion Gap 15 mmol/L BUN 12 (7-17) mg/dL Creatinine 0.78 (0.52-1.04) mg/dL Est GFR (CKD-EPI)AfAm >90 (>60 ml/min/1.73 sqM) Est GFR (CKD-EPI)NonAf 86 (>60 ml/min/1.73 sqM) Glucose 87 (74-99) mg/dL Plasma Lactic Acid Tom 1.3 (0.7-2.0) mmol/L Calcium 9.7 (8.4-10.2) mg/dL Total Bilirubin 2.3 H (0.2-1.3) mg/dL AST 24 (14-36) U/L ALT 15 (9-52) U/L Alkaline Phosphatase 113 (38-126) U/L NT-Pro-B Natriuret Pep pg/mL Total Protein 8.1 (6.3-8.2) g/dL Albumin 4.5 (3.5-5.0) g/dL 09/29/18 Range/Units 19:30 WBC (3.8-10.6) k/uL RBC (3.80-5.40) m/uL Hgb (11.4-16.0) gm/dL Hct (34.0-46.0) % MCV (80.0-100.0) fL MCH (25.0-35.0) pg MCHC (31.0-37.0) g/dL RDW (11.5-15.5) % Plt Count (150-450) k/uL Neutrophils % % Lymphocytes % % Monocytes % % Eosinophils % % Basophils % % Neutrophils # (1.3-7.7) k/uL Lymphocytes # (1.0-4.8) k/uL Monocytes # (0-1.0) k/uL Eosinophils # (0-0.7) k/uL Basophils # (0-0.2) k/uL Sodium (137-145) mmol/L Potassium (3.5-5.1) mmol/L Chloride (98-107) mmol/L Carbon Dioxide (22-30) mmol/L Anion Gap mmol/L BUN (7-17) mg/dL Creatinine (0.52-1.04) mg/dL Est GFR (CKD-EPI)AfAm (>60 ml/min/1.73 sqM) Est GFR (CKD-EPI)NonAf (>60 ml/min/1.73 sqM) Glucose (74-99) mg/dL Plasma Lactic Acid Tom (0.7-2.0) mmol/L Calcium (8.4-10.2) mg/dL Total Bilirubin (0.2-1.3) mg/dL AST (14-36) U/L ALT (9-52) U/L Alkaline Phosphatase (38-126) U/L NT-Pro-B Natriuret Pep 56 pg/mL Total Protein (6.3-8.2) g/dL Albumin (3.5-5.0) g/dL 09/29/18 20:17 EKG performed at 1952 she is normal sinus rhythm, low voltage QRS. Nonspecific ST abnormality. Abnormal EKG. Ventricular 69 bpm.. Was 160. Stressors and 70 ms. QTC is 44/432 seconds. - Radiology Data Radiology results: report reviewed No suspicious changes for osteomalacia. Osteopenia limits the evaluation. Mild prominence of the soft tissues. Disposition Clinical Impression: Cellulitis, Lymphedema of both lower extremities, Chronic ulcer of left foot with fat layer exposed Disposition: ADMITTED IP TO THIS HOSP Condition: Stable Is patient prescribed a controlled substance at d/c from ED?: No Referrals: Jami Lo MD [Primary Care Provider] - 1-2 days Time of Disposition: 20:50
[2018-09-29] MEDS ORDERED: VANCOMYCIN 1,500 MG in SODIUM CHLORIDE 0.9% 250 ML IVPB ONE (19:30)
--- NOTE | 2018-09-29 19:59 | XR ---
EXAMINATION TYPE: XR foot complete LT DATE OF EXAM: 09/29/2018 COMPARISON: 12/05/2017 HISTORY: Pain limited range of motion TECHNIQUE: Three-view left foot FINDINGS: There is marked soft tissue swelling throughout the left foot. No acute displaced fractures are identified. The distal fourth digit is poorly visualized these findi ngs appear stable. Previous air within the soft tissues is not evident on the current examination. Stiles spicious cortical erosion is not clearly identified. IMPRESSION: 1. No suspicious changes for acute osteomyelitis. Osteopenia however limits this evaluation somewhat . 2. Marked prominence of the soft tissues
[2018-09-29] MEDS: SODIUM CHLORIDE 0.9% 1,000 ML IV SCH (20:11)
[2018-09-29 20:12] LABS: Basophils # (A) 0.1 k/uL (0-0.2); Basophils % (A) 1 %; Eosinophils # (A) 0.1 k/uL (0-0.7); Eosinophils % (A) 2 %; HCT 46.5 % (34.0-46.0); Lymphocytes # (A) 1.7 k/uL (1.0-4.8); Lymphocytes % (A) 22 %; MCH 27.7 pg (25.0-35.0); MCHC 32.4 g/dL (31.0-37.0); MCV 85.6 fL (80.0-100.0); Mean Platelet Volume 7.2; Monocytes # (A) 0.6 k/uL (0-1.0); Monocytes % (A) 7 %; Neutrophils # (A) 5.2 k/uL (1.3-7.7); Neutrophils % (A) 67 %; Platelet Count 308 k/uL (150-450); RBC 5.43 m/uL (3.80-5.40); RDW 13.4 % (11.5-15.5); WBC 7.8 k/uL (3.8-10.6)
[2018-09-29 20:24] LABS: ALT 15 U/L (9-52); AST 24 U/L (14-36); African American GFR (CKD) >90 (>60 ml/min/1.73 sqM); Albumin 4.5 g/dL (3.5-5.0); Alkaline Phosphatase 113 U/L (38-126); Anion Gap 15 mmol/L; Blood Urea Nitrogen 12 mg/dL (7-17); Calcium 9.7 mg/dL (8.4-10.2); Carbon Dioxide 21 mmol/L (22-30); Chloride 107 mmol/L (98-107); Glucose 87 mg/dL (74-99); Potassium 3.5 mmol/L (3.5-5.1); Sodium 143 mmol/L (137-145); Total Bilirubin 2.3 mg/dL (0.2-1.3); Total Protein 8.1 g/dL (6.3-8.2)
[2018-09-29] MEDS ORDERED: IBUPROFEN 400 MG TAB PO PRN (20:51)
[2018-09-29] MEDS ORDERED: MORPHINE SULFATE 4 MG/ML SYRINGE IV PRN (20:51)
[2018-09-29] MEDS ORDERED: NALOXONE 0.4 MG/ML 1 ML VIAL IV PRN (20:51)
[2018-09-29] MEDS ORDERED: ONDANSETRON 4 MG/2 ML VIAL IVP PRN (20:51)
[2018-09-29] MEDS: ACETAMINOPHEN TAB 325 MG TAB PO PRN (22:22)
[2018-09-29] MEDS: PIPERACILLIN-TAZOBACTAM 3.375 GM in SODIUM CHLORIDE 0.9% 100 ML IVPB SCH (22:34)
[2018-09-30] MEDS: SODIUM CHLORIDE 0.9% 1,000 ML IV SCH ×2 (03:32→14:37)
[2018-09-30] MEDS: PANTOPRAZOLE 40 MG/10 ML VIAL IV SCH (09:00)
[2018-09-30] MEDS: PIPERACILLIN-TAZOBACTAM 3.375 GM in SODIUM CHLORIDE 0.9% 100 ML IVPB SCH ×3 (09:00→23:37)
[2018-09-30] MEDS: KETOROLAC 30 MG/ML 1 ML VIAL IVP PRN (09:20)
[2018-09-30] MEDS ORDERED: VANCOMYCIN 1,500 MG in SODIUM CHLORIDE 0.9% 250 ML IVPB SCH (12:00)
[2018-09-30] MEDS: BUMETANIDE 1 MG TAB PO SCH (15:12)
--- NOTE | 2018-09-30 16:16 | P.HPIM ---
History of Present Illness Patient is a pleasant 57-year-old female with deformities in the both legs leading to lymphedema of both legs which is chronic and the swelling or both legs which is chronic came in with an ulcer on the dorsum of the left foot mostly towards the lateral side of the foot to serous drainage S for the patient with redness and localized of temperature there is some redness and localized temperature in the right foot as well. Patient was started on vancomycin and Zosyn and infectious disease was consulted patient was started on IV fluids. Patient is complaining of burning sensation and pain in that area denied any fever chills patient was taking Augmentin at home patient is mostly wheelchair bound because of deformities in both legs. Review of Systems REVIEW OF SYSTEMS: CONSTITUTIONAL: No fever, no malaise, no fatigue. HEENT: No recent visual problems or hearing problems. Denied any sore throat. CARDIOVASCULAR: No chest pain, orthopnea, PND, no palpitations, no syncope. PULMONARY: No shortness of breath, no cough, no hemoptysis. GASTROINTESTINAL: No diarrhea, no nausea, no vomiting, no abdominal pain. NEUROLOGICAL: No headaches, no weakness, no numbness. HEMATOLOGICAL: Denies any bleeding or petechiae. GENITOURINARY: Denies any burning micturition, frequency, or urgency. MUSCULOSKELETAL/RHEUMATOLOGICAL: As mentioned in HPI ENDOCRINE: Denies any polyuria or polydipsia. The rest of the 14-point review of systems is negative. Past Medical History Past Medical History: Asthma, GERD/Reflux, Hypertension Additional Past Medical History / Comment(s): Cerebral palsey, bilateeral lower extremity deformities, bilateral lower leg and feet cellulitis, current L foot and R lower leg ulcers, chronic lymphedema, chronic venous insufficiency, gait disturbance, occasional urinary leakage, abdominal hernia, seasonal asthma. History of Any Multi-Drug Resistant Organisms: None Reported Past Surgical History: No Surgical Hx Reported Additional Past Surgical History / Comment(s): Bilateral heel cord lenghtenings, several bilateral leg surgeries for mobility. Past Anesthesia/Blood Transfusion Reactions: No Reported Reaction, Motion Sickness Past Psychological History: Depression Additional Psychological History / Comment(s): Pt states she is currently under increased stress. She is moving out of her apartment. She recently received section 8 and thought she had a new apartment lined up with a ramp but if did not happen. She has a dog. She drives. 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 She uses 2 canes or a walker and has an electric scooter. She currently has no home care. Smoking Status: Never smoker Past Alcohol Use History: None Reported Additional Past Alcohol Use History / Comment(s): Lifelong nonsmoker. No illicit drug use. Patient lives independently but states she needs to move out by the end of the month. She normally uses a scooter for ambulation. Past Drug Use History: None Reported - Past Family History Father Family Medical History: No Reported History Mother Additional Family Medical History / Comment(s): did not obtain information due to patient anxiety during assessment Medications and Allergies Home Medications Medication Instructions Recorded Confirmed Type Bumetanide [BUMEX] 1 mg PO BID 12/05/17 09/29/18 History Cetirizine HCl [Zyrtec] 10 mg PO DAILY 12/05/17 09/29/18 History Tolterodine Tartrate [Detrol LA] 4 mg PO DAILY 12/26/17 09/29/18 History Allergies Allergy/AdvReac Type Severity Reaction Status Date / Time Sulfa (Sulfonamide AdvReac INDIGESTION Verified 09/29/18 21:37 Antibiotics) Physical Exam Vitals: Vital Signs Temp Pulse Pulse Resp BP BP Pulse Ox 09/30/18 07:28 98.2 F 71 15 172/92 95 09/29/18 22:46 98.4 F 65 18 157/79 98 09/29/18 20:30 78 16 167/84 99 09/29/18 18:17 98.7 F 81 18 170/97 96 Intake and Output 09/30/18 09/30/18 09/30/18 06:59 14:59 22:59 Intake Total 740 740 Balance 740 740 Intake: Intake, IV Titration 500 Amount Sodium Chloride 0.9% 1, 500 000 ml @ 100 mls/hr IV . Q10H [facility] Rx#:[id number] Oral 240 740 Other: # Voids 1 PHYSICAL EXAMINATION: GENERAL: The patient is alert and oriented x3, not in any acute distress. Well developed, well nourished. HEENT: Pupils are round and equally reacting to light. EOMI. No scleral icterus. No conjunctival pallor. Normocephalic, atraumatic. No pharyngeal erythema. No thyromegaly. CARDIOVASCULAR: S1 and S2 present. No murmurs, rubs, or gallops. PULMONARY: Chest is clear to auscultation, no wheezing or crackles. ABDOMEN: Soft, nontender, nondistended, normoactive bowel sounds. No palpable organomegaly. MUSCULOSKELETAL: No joint swelling or deformity. EXTREMITIES: No cyanosis, clubbing, or pedal edema. NEUROLOGICAL: Gross neurological examination did not reveal any focal deficits. SKIN: She and has both leg deformities with chronic lymphedema and the left leg has an ulcer on the dorsum of the foot stage III with surrounding cellulitis and edema right leg has mild cellulitis and edema as well. Results CBC & Chem 7: 09/29/18 19:30 09/29/18 19:30 Labs: Abnormal Lab Results - Last 24 Hours (Table) 09/29/18 09/29/18 Range/Units 19:30 19:30 RBC 5.43 H (3.80-5.40) m/uL Hct 46.5 H (34.0-46.0) % Carbon Dioxide 21 L (22-30) mmol/L Total Bilirubin 2.3 H (0.2-1.3) mg/dL Microbiology - Last 24 Hours (Table) 09/29/18 19:30 Gram Stain - Preliminary Foot - Left Wound Culture - Preliminary Thrombosis Risk Factor Assmnt - Choose All That Apply Any of the Below Risk Factors Present?: Yes Each Factor Represents 1 point: Obesity (BMI >25), Swollen legs (current) Other Risk Factors: Yes Each Risk Factor Represents 2 Points: Patient confined to bed Other congenital or acquired thrombophilia - If yes, enter type in comment: No Thrombosis Risk Factor Assessment Total Risk Factor Score: 4 Thrombosis Risk Factor Assessment Level: Moderate Risk Assessment and Plan Plan: -Bilateral lower extremity lymphedema and cellulitis of both lower extremities with an ulcer in the left dorsum of the left foot continue the vancomycin and Unasyn and cultures obtain blood cultures were obtained elevated the legs in Nilay bandages infectious disease was consulted. -Chronic deformities in both legs secondary to cerebral palsy -Asthma without any acute exacerbation related to -Essential hypertension DVT prophylaxis with subcutaneous heparin
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
[2018-10-01] MEDS: SODIUM CHLORIDE 0.9% 1,000 ML IV SCH ×3 (01:56→22:28)
[2018-10-01] MEDS: KETOROLAC 30 MG/ML 1 ML VIAL IVP PRN ×2 (04:04→10:58)
[2018-10-01] MEDS: LORATADINE 10 MG TAB PO SCH (10:02)
[2018-10-01] MEDS: BUMETANIDE 1 MG TAB PO SCH ×2 (10:02→18:48)
[2018-10-01] MEDS: PANTOPRAZOLE 40 MG/10 ML VIAL IV SCH (10:04)
[2018-10-01] MEDS: PIPERACILLIN-TAZOBACTAM 3.375 GM in SODIUM CHLORIDE 0.9% 100 ML IVPB SCH ×3 (10:05→22:28)
[2018-10-01] MEDS: ACETAMINOPHEN TAB 325 MG TAB PO PRN (11:03)
--- NOTE | 2018-10-01 15:09 | P.PN ---
Subjective Progress Note Date: 10/01/18 Principal diagnosis: This is a 57-year-old female who was admitted for lymphedema and ulcers to the dorsum of the left foot as well as redness, warmth, drainage from bilateral feet. Awaiting infectious disease consult at this time. Patient is currently on IV vancomycin and Zosyn. Will continue to monitor closely. Patient is having a lot of drainage and increased swelling of bilateral lower extremities with Nilay wraps applied. Patient had a bone scan today and results are pending at this time. Patient was sitting up in recliner with bilateral lower extremities not being elevated as she is getting up often to use the bathroom. Patient uses a walker and/or wheelchair with assistance to the bathroom as she normally uses a scooter at home. Patient denies any chest pain or shortness of breath but states that she is having some abdominal upset and believes it is due to the antibiotics. Patient has been picking at food but has not had a real appetite. Patient is very anxious and concerned that the bone scan may show something. Patient remains afebrile at this time and denies any palpitations at this time. Dr. Hunter is following the patient closely as well. Objective - Vital Signs Vital signs: Vital Signs Temp 98.9 F 10/01/18 07:00 Pulse 82 10/01/18 10:27 Resp 16 10/01/18 07:00 BP 144/83 10/01/18 07:00 Pulse Ox 97 10/01/18 07:00 Intake & Output 09/30/18 10/01/18 10/01/18 18:59 06:59 18:59 Intake Total 740 1180 322 Balance 740 1180 322 Intake: Intake, IV Titration 100 Amount Piperacillin-Tazobactam 3 100 .375 gm In Sodium Chloride 0.9% 100 ml @ 25 mls/hr IVPB Q8H [facility] Rx#: [id number] Oral 740 1180 222 Other: # Voids 1 3 2 - Exam Gen: This is a 57-year-old female that is in no acute distress and is sitting in her recliner with family present at the bedside. vital signs are stable. HEENT: Head is atraumatic, normocephalic. Pupils equal, round. Sclerae is anicteric. NECK: Supple. No JVD. No lymphadenopathy. No thyromegaly. LUNGS: Clear to auscultation. No wheezes or rhonchi. No intercostal retractions. HEART: Regular rate and rhythm. No murmur. ABDOMEN: Soft. Bowel sounds are present. No masses. No tenderness. EXTREMITIES: extreme pedal edema and lymphedema noted to bilateral lower extremies with nilay wraps applied for compression. Left more pronounced than right. No calf tenderness. NEUROLOGICAL: Patient is awake, alert and oriented x3. Cranial nerves 2 through 12 are grossly intact. - Labs CBC & Chem 7: 09/29/18 19:30 10/01/18 07:39 Labs: Microbiology - Last 24 Hours (Table) 09/29/18 19:30 Blood Culture - Preliminary Blood No Growth after 24 hours 09/29/18 19:30 Gram Stain - Preliminary Foot - Left Wound Culture - Preliminary Gram Neg Bacilli Assessment and Plan Assessment: Bilateral lower extremity lymphedema and cellulitis of both lower extremities with an ulcer and fat pad exposure of the dorsum of the left foot. Continue IV antibiotics and will await for culture results. Gram-negative bacilli is currently showing on the wound culture will await for final results. Infectious disease to still follow. Nilay bandages being applied to help with compression and minimizing the lymphedema. Patient instructed to elevate bilateral lower extremities as much as possible while sitting. Chronic deformities in both legs secondary to cerebral palsy History of asthma without acute exacerbation History of Essential hypertension Continue DVT prophylaxis currently on subcutaneous heparin injections Recommendations and discussion: Recommend continue current medications and continue symptomatic treatment. We'll continue with IV antibiotics and await further instruction from infectious disease. We'll continue to monitor closely with Dr. Hunter. Guarded prognosis at this time further recommendations to follow. Will await bone scan report.
--- NOTE | 2018-10-01 15:29 | NM ---
EXAMINATION TYPE: NM bone 3 phase DATE OF EXAM: 10/01/2018 COMPARISON: Prior bone scan 12/07/2017, left foot dated 09/29/2018 HISTORY: Osteomyelitis, nonhealing wound Triple phase bone scintigraphy was performed following the injection of 24.2 mCi Tc 99m MDP. Immedia te images and 4.5 hours post injection images acquired. FINDINGS: There is symmetric radio pharmaceutical uptake noted on blood flow images, increased uptake within th e soft tissues may be due to cellulitis. First digit of the left breast shows asymmetric increased up take on blood pool images however the digits are not well seen on the exam. Suggestion of increased u ptake noted at the first digits of both feet on delayed images. IMPRESSION: Findings somewhat equivocal. Difficult to exclude osteomyelitis first digit left foot.
--- NOTE | 2018-10-01 16:57 | P.PN ---
Subjective Progress Note Date: 10/01/18 Patient seen and examined at bedside. She continues to complain of pain with palpation of the dorsum of the L foot but is able to walk without pain. Her bone scan was unable to rule out involvement of the L great toe. Wound culture with few gram neg rods. Objective - Vital Signs Vital signs: Vital Signs Temp 98.3 F 10/01/18 15:00 Pulse 64 10/01/18 15:00 Resp 15 10/01/18 15:00 BP 155/80 10/01/18 15:00 Pulse Ox 92 L 10/01/18 15:00 Intake & Output 09/30/18 10/01/18 10/01/18 18:59 06:59 18:59 Intake Total 740 1180 322 Balance 740 1180 322 Intake: Intake, IV Titration 100 Amount Piperacillin-Tazobactam 3 100 .375 gm In Sodium Chloride 0.9% 100 ml @ 25 mls/hr IVPB Q8H [facility] Rx#: [id number] Oral 740 1180 222 Other: # Voids 1 3 2 - Exam General: Alert, reclining in chair, NAD. Vitals reviewed CV: RRR, no murmur Lungs: CTAB, normal effort Ext: Bilateral legs with 4+ edema. Wrapped. L dorsum of long wall mining machine tender to palpation. Toes nontender to palpation - Labs CBC & Chem 7: 09/29/18 19:30 10/01/18 07:39 Labs: Microbiology - Last 24 Hours (Table) 09/29/18 19:30 Blood Culture - Preliminary Blood No Growth after 24 hours 09/29/18 19:30 Gram Stain - Preliminary Foot - Left Wound Culture - Preliminary Gram Neg Bacilli Assessment and Plan (1) Chronic ulcer of left foot with fat layer exposed Current Visit: Yes Status: Acute Code(s): L97.522 - NON-PRS CHRONIC ULCER OTH PRT LEFT FOOT W FAT LAYER EXPOSED SNOMED Code(s): 805159810 (2) Lymphedema of both lower extremities Current Visit: Yes Status: Acute Code(s): I89.0 - LYMPHEDEMA, NOT ELSEWHERE CLASSIFIED SNOMED Code(s): 06330177944500783 (3) Cellulitis Current Visit: Yes Status: Acute Code(s): L03.90 - CELLULITIS, UNSPECIFIED SNOMED Code(s): 100888823 Plan: Infectious disease following. Wound culture with gram negative rods. Blood culture no growth. Bone scan unable to rule out osteomyelitis of L great toe. Continue zosyn, await sensitivity. Low suspicion for osteomyelitis but will proceed with MRI to confirm
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
[2018-10-02] MEDS: PIPERACILLIN-TAZOBACTAM 3.375 GM in SODIUM CHLORIDE 0.9% 100 ML IVPB SCH ×3 (06:02→22:46)
[2018-10-02] MEDS: SODIUM CHLORIDE 0.9% 1,000 ML IV SCH ×2 (06:20→19:13)
[2018-10-02] MEDS: LORATADINE 10 MG TAB PO SCH (08:42)
[2018-10-02] MEDS: PANTOPRAZOLE 40 MG TABLET PO SCH (08:42)
[2018-10-02] MEDS: BUMETANIDE 1 MG TAB PO SCH ×2 (08:42→16:24)
[2018-10-02] MEDS: GABAPENTIN 100 MG CAP PO SCH ×2 (12:27→21:32)
--- NOTE | 2018-10-02 14:26 | MR ---
MR left foot with and without contrast HISTORY: Nonhealing wound top of foot Multiplanar multisequence and postcontrast images obtained through the left foot following 9 cc Gadav ist IV Correlation to 3 phase bone scan dated 10/01/2018 exam somewhat limited technically. Extensive soft tissue swelling is present with abnormal intermediate T1, increased T2 signal over the dorsum of foot. Bone marrow signal is maintained. No definite focal abscess. No abnormal bone marrow enhancement following contrast administration. There is some enhancement of the edematous soft tissu es. IMPRESSION: Correlate for cellulitis. No evident osteomyelitis.
--- NOTE | 2018-10-02 17:49 | P.PN ---
Subjective Progress Note Date: 10/02/18 Patient is a pleasant 57-year-old female with deformities in the both legs leading to lymphedema of both legs which is chronic and the swelling or both legs which is chronic came in with an ulcer on the dorsum of the left foot mostly towards the lateral side of the foot to serous drainage S for the patient with redness and localized of temperature there is some redness and localized temperature in the right foot as well. Patient was started on vancomycin and Zosyn and infectious disease was consulted patient was started on IV fluids. Patient is complaining of burning sensation and pain in that area denied any fever chills patient was taking Augmentin at home patient is mostly wheelchair bound because of deformities in both legs. 10/02/2018 Patient seen and examined at bedside. She continues to complain of pain with palpation of the dorsum of the L foot but is able to walk without pain. Her bone scan was unable to rule out involvement of the L great toe. Wound culture with few gram neg rods. 10/03/2018: Maintained on IV antibiotics of Zosyn. Bone scan inconclusive for osteomyelitis, MRI scheduled for today. Patient complains of " shooting ,burning" pain in her legs. Afebrile. Denies chest pain, palpitations. DVT prophylaxis with heparin subcu. GI prophylaxis with Protonix. The impression and plan of care has been dictated as directed. : I performed a history and examination of this patient, discussed the same with the dictator. I agree with the dictator's note ,documented as a scribe. Any additional findings or plans will be noted. Objective - Vital Signs Vital signs: Vital Signs Temp 98.3 F 10/02/18 08:02 Pulse 57 L 10/02/18 08:02 Resp 16 10/02/18 08:02 BP 140/80 10/02/18 08:02 Pulse Ox 97 10/02/18 07:20 Intake & Output 10/01/18 10/02/18 10/02/18 18:59 06:59 18:59 Intake Total 558 100 Balance 558 100 Intake: Intake, IV Titration 100 Amount Piperacillin-Tazobactam 3 100 .375 gm In Sodium Chloride 0.9% 100 ml @ 25 mls/hr IVPB Q8H [facility] Rx#: [id number] Oral 458 100 Other: Voiding Method Toilet # Voids 2 1 - Exam GENERAL: The patient is alert and oriented x3, not in any acute distress. Well developed, well nourished. HEENT: Pupils are round and equally reacting to light. EOMI. No scleral icterus. No conjunctival pallor. Normocephalic, atraumatic. No pharyngeal erythema. No thyromegaly. CARDIOVASCULAR: S1 and S2 present. No murmurs, rubs, or gallops. PULMONARY: Chest is clear to auscultation, no wheezing or crackles. ABDOMEN: Soft, nontender, nondistended, normoactive bowel sounds. No palpable organomegaly. MUSCULOSKELETAL: No joint swelling or deformity. EXTREMITIES: Bilateral legs with 4+ edema, Nilay wrapped. 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 NEUROLOGICAL: Gross neurological examination did not reveal any focal deficits. Microbiology 09/29/18 19:30 Blood Blood Culture - Preliminary No Growth after 48 hours 09/29/18 19:30 Foot - Left Gram Stain - Final 09/29/18 19:30 Foot - Left Wound Culture - Final Providencia rettgeri - Labs CBC & Chem 7: 09/29/18 19:30 10/01/18 07:39 Labs: Microbiology - Last 24 Hours (Table) 09/29/18 19:30 Blood Culture - Preliminary Blood No Growth after 48 hours 09/29/18 19:30 Gram Stain - Final Foot - Left Wound Culture - Final Providencia rettgeri Assessment and Plan Assessment: (1) Chronic ulcer of left foot with fat layer exposed, stage III with Providencia rettgeri Current Visit: Yes Status: Acute Code(s): L97.522 - NON-PRS CHRONIC ULCER OTH PRT LEFT FOOT W FAT LAYER EXPOSED SNOMED Code(s): 883044305 (2) Lymphedema of both lower extremities Current Visit: Yes Status: Acute Code(s): I89.0 - LYMPHEDEMA, NOT ELSEWHERE CLASSIFIED SNOMED Code(s): 29591588140886470 (3) Cellulitis Current Visit: Yes Status: Acute Code(s): L03.90 - CELLULITIS, UNSPECIFIED SNOMED Code(s): 608540061 (4) Cerebral palsy Current Visit: Yes Status: Acute Code(s): G80.9 - CEREBRAL PALSY, UNSPECIFIED SNOMED Code(s): 766380830 Plan: Continue on current medication regime ,monitoring and symptomatic treatment. MRI scheduled for today, pending. Maintain IV antibiotics of Zosyn as per ID. continue to facilitate elevation of bilateral extremities. Follow cultures closely. Complains of neuropathy pain, Neurontin initiated. The impression and plan of care has been dictated as directed. : I performed a history and examination of this patient, discussed the same with the dictator. I agree with the dictator's note ,documented as a scribe. Any additional findings or plans will be noted.
[2018-10-02] MEDS: HEPARIN SODIUM,PORCINE 5,000 UNIT/ML 1 ML VIAL SQ SCH (18:12)
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
[2018-10-03] MEDS: SODIUM CHLORIDE 0.9% 1,000 ML IV SCH (03:30)
[2018-10-03] MEDS: PIPERACILLIN-TAZOBACTAM 3.375 GM in SODIUM CHLORIDE 0.9% 100 ML IVPB SCH (08:02)
[2018-10-03 08:10] VITALS: BP 151/91; RESP 17; TEMP 98.3
[2018-10-03] MEDS: LORATADINE 10 MG TAB PO SCH (08:16)
[2018-10-03] MEDS: PANTOPRAZOLE 40 MG TABLET PO SCH (08:16)
[2018-10-03] MEDS: GABAPENTIN 100 MG CAP PO SCH (08:16)
[2018-10-03] MEDS: BUMETANIDE 1 MG TAB PO SCH (08:16)
[2018-10-03] MEDS: HEPARIN SODIUM,PORCINE 5,000 UNIT/ML 1 ML VIAL SQ SCH (08:16)
[2018-10-03 08:27] LABS: Basophils # (A) 0.1 k/uL (0-0.2); Basophils % (A) 1 %; Eosinophils # (A) 0.4 k/uL (0-0.7); Eosinophils % (A) 7 %; HCT 39.5 % (34.0-46.0); Lymphocytes % (A) 21 %; MCH 28.2 pg (25.0-35.0); MCV 85.4 fL (80.0-100.0); Mean Platelet Volume 7.8; Monocytes # (A) 0.5 k/uL (0-1.0); Monocytes % (A) 9 %; Neutrophils # (A) 2.9 k/uL (1.3-7.7); Neutrophils % (A) 60 %; Platelet Count 237 k/uL (150-450); RBC 4.62 m/uL (3.80-5.40); RDW 14.5 % (11.5-15.5); WBC 4.9 k/uL (3.8-10.6)
[2018-10-03 08:36] LABS: Calcium 8.5 mg/dL (8.4-10.2); Potassium 3.6 mmol/L (3.5-5.1)
[2018-10-03 10:37] VITALS: PULSE 58
--- NOTE | 2018-10-04 11:10 | P.DS ---
Providers Date of admission: 10/01/18 14:44 Expected date of discharge: 10/04/18 Attending physician: Won Monahan MD Consults: 09/29/18 20:51 Consult Physician Stat Consulting Provider: Ceasr Hunter Consult Reason/Comments: cellulitis, outpatient failure Do you want consulting provider notified?: Yes Primary care physician: [facility] Hospital Course: Final Diagnoses: (1) Chronic ulcer of left foot with fat layer exposed, stage III with Providencia rettgeri Current Visit: Yes Status: Acute Code(s): L97.522 - NON-PRS CHRONIC ULCER OTH PRT LEFT FOOT W FAT LAYER EXPOSED SNOMED Code(s): 699157681 (2) Lymphedema of both lower extremities Current Visit: Yes Status: Acute Code(s): I89.0 - LYMPHEDEMA, NOT ELSEWHERE CLASSIFIED SNOMED Code(s): 99520273450519955 (3) Cellulitis Current Visit: Yes Status: Acute Code(s): L03.90 - CELLULITIS, UNSPECIFIED SNOMED Code(s): 588595866 (4) Cerebral palsy Current Visit: Yes Status: Acute Code(s): G80.9 - CEREBRAL PALSY, UNSPECIFIED SNOMED Code(s): 268421935 Hospital course:Patient is a pleasant 57-year-old female with deformities in the both legs leading to lymphedema of both legs which is chronic and the swelling or both legs which is chronic came in with an ulcer on the dorsum of the left foot mostly towards the lateral side of the foot to serous drainage S for the patient with redness and localized of temperature there is some redness and localized temperature in the right foot as well. Patient was started on vancomycin and Zosyn and infectious disease was consulted patient was started on IV fluids. Patient is complaining of burning sensation and pain in that area denied any fever chills patient was taking Augmentin at home patient is mostly wheelchair bound because of deformities in both legs. 10/01/2018 Patient seen and examined at bedside. She continues to complain of pain with palpation of the dorsum of the L foot but is able to walk without pain. Her bone scan was unable to rule out involvement of the L great toe. Wound culture with few gram neg rods. 10/02/2018: Maintained on IV antibiotics of Zosyn. Bone scan inconclusive for osteomyelitis, MRI scheduled for today. Patient complains of " shooting ,burning" pain in her legs. Afebrile. Denies chest pain, palpitations. DVT prophylaxis with heparin subcu. GI prophylaxis with Protonix. MRI reported no evident osteomyelitis. Significant clinical improvement. Cleared by infectious disease for discharge. Patient is being discharged home in stable condition with her prognosis. - Exam GENERAL: The patient is alert and oriented x3, not in any acute distress. Well developed, well nourished. CARDIOVASCULAR: S1 and S2 present. No murmurs, rubs, or gallops. PULMONARY: Chest is clear to auscultation, no wheezing or crackles. ABDOMEN: Soft, nontender, nondistended, normoactive bowel sounds. No palpable organomegaly. EXTREMITIES: Bilateral legs with 4+ edema, Nilay wrapped. Toes of left brick tender As well as left dorsum .bilateral leg deformities with chronic lymphedema and the left leg has an ulcer on the dorsum of the foot stage III with surrounding cellulitis and edema right leg has mild cellulitis with edema. NEUROLOGICAL: Gross neurological examination did not reveal any focal deficits. Microbiology 09/29/18 19:30 Blood Blood Culture - Preliminary No Growth after 96 hours 09/29/18 19:30 Foot - Left Gram Stain - Final 09/29/18 19:30 Foot - Left Wound Culture - Final Providencia rettgeri Significant clinical improvement. Cleared by infectious disease for discharge. Patient is being discharged home in stable condition with guarded prognosis. Time taken: 35 minutes Patient Condition at Discharge: Stable Plan - Discharge Summary Discharge Rx Participant: Yes New Discharge Prescriptions: New Pantoprazole [Protonix] 40 mg PO [facility] #15 tablet. Acetaminophen Tab [Tylenol] 650 mg PO Q6HR PRN tab PRN Reason: Mild Pain Or Fever > 100.5 Gabapentin [Neurontin] 100 mg PO BID #10 cap Levofloxacin [Levaquin] 500 mg PO DAILY #10 tab Continue Bumetanide [BUMEX] 1 mg PO BID Cetirizine HCl [Zyrtec] 10 mg PO DAILY Tolterodine Tartrate [Detrol LA] 4 mg PO DAILY Discharge Medication List Bumetanide [BUMEX] 1 mg PO BID 12/05/17 [History] Cetirizine HCl [Zyrtec] 10 mg PO DAILY 12/05/17 [History] Tolterodine Tartrate [Detrol LA] 4 mg PO DAILY 12/26/17 [History] Acetaminophen Tab [Tylenol] 650 mg PO Q6HR PRN tab 10/03/18 [Rx] Gabapentin [Neurontin] 100 mg PO BID #10 cap 10/03/18 [Rx] Levofloxacin [Levaquin] 500 mg PO DAILY #10 tab 10/03/18 [Rx] Pantoprazole [Protonix] 40 mg PO AC-BRKFST #15 tablet. 10/03/18 [Rx] Follow up Appointment(s)/Referral(s): Cesar Hunter MD [STAFF PHYSICIAN] - 2 Weeks (office doesnt believe need to be seen) Jami Lo MD [Primary Care Provider] - 10/09/18 1:30 pm (At [facility] ) Ambulatory/Diagnostic Orders: Complete Blood Count w/diff [LAB.AMB] Time Frame: 3 Days, Location: None [facility] Miscellaneous Therapy Services Order [THER.AMB] Location: None Selected Patient Instructions/Handouts: Cellulitis (DC), Cellulitis (GEN), Lymphedema (DC), Lymphedema (GEN) Activity/Diet/Wound Care/Special Instructions: Attendant care services [facility]: #[phone] clean with normal saline, apply Therahony to wound bed apply non stick dressing, ABD, gauze wrap, then nilay wrap foot to knee figure 8 daily, elevate Discharge Disposition: HOME WITH HOME HEALTH SERVICES
== END 2018-10-03 17:53 | disposition home health service (06) | DRG 603 ==
LOC: EC 18:07 → 4SSUR 20:32 → OBSVTOIN 10-01 14:44
PROVIDERS: ADMIT Family Medicine; ATTEND Family Medicine
DX: L03.116 Cellulitis of left lower limb (principal); L03.115 Cellulitis of right lower limb; L97.522 Non-pressure chronic ulcer of other part of left foot with fat layer exposed; B96.89 Other specified bacterial agents as the cause of diseases classified elsewhere; F41.9 Anxiety disorder, unspecified; G80.9 Cerebral palsy, unspecified; I89.0 Lymphedema, not elsewhere classified; Q68.8 Other specified congenital musculoskeletal deformities; I87.8 Other specified disorders of veins; I10 Essential (primary) hypertension; K46.9 Unspecified abdominal hernia without obstruction or gangrene; J45.909 Unspecified asthma, uncomplicated; K21.9 Gastro-esophageal reflux disease without esophagitis; M85.80 Other specified disorders of bone density and structure, unspecified site; F32.9 Major depressive disorder, single episode, unspecified; R26.9 Unspecified abnormalities of gait and mobility; Z79.51 Long term (current) use of inhaled steroids; Z79.899 Other long term (current) drug therapy; Z99.3 Dependence on wheelchair; Z88.2 Allergy status to sulfonamides
CPT/HCPCS: 36415; 78315; 80048; 80053; 82565; 83605; 83880; 85025; 87040; 87070; 87077; 87186; 87205; 93005; 96365; 99285

== ENCOUNTER 2019-12-21 21:07 | Emergency (ER) | payer MEDICARE, OTHER ==
[2019-12-21 21:21] VITALS: RESP 18
[2019-12-21] MEDS ORDERED: MORPHINE SULFATE 4 MG/ML SYRINGE IM STA (22:51)
--- NOTE | 2019-12-21 23:23 | ED ---
Skin/Abscess/FB HPI - General Chief complaint: Skin/Abscess/Foreign Body Stated complaint: Recheck wound Time Seen by Provider: 12/21/19 21:36 Source: patient Mode of arrival: wheelchair Limitations: no limitations - History of Present Illness Initial comments: 59-year-old female patient with chronic wounds to the left foot presents to the emergency department today for evaluation of the wounds. She was told by her home care nurse yesterday that she needed to have the wounds evaluated due to her possibly being maggots present. States that she did rewrap the feet at that time. She states that she had to get some things in order at home was unable to come in until tonight. Patient states she does have pain to the fever this is not unusual. She denies any fever or chills. States she has not removed the dressing since the nurse was there. States she feels like she can feel things crawling on her legs. Patient does get wound care every other Monday with Dr. Hunter, she did miss her last 2 appointments. Patient denies any recent rash, cough, shortness of breath, chest pain, abdominal pain, nausea, vomiting, diarrhea, constipation, back pain, numbness, tingling, dizziness, weakness, hematuria, dysuria, urinary urgency, urinary frequency, headache, visual changes, or any other complaints. - Related Data Home Medications Medication Instructions Recorded Confirmed Bumetanide [BUMEX] 1 mg PO BID 12/05/17 09/29/18 Cetirizine HCl [Zyrtec] 10 mg PO DAILY 12/05/17 09/29/18 Tolterodine Tartrate [Detrol LA] 4 mg PO DAILY 12/26/17 09/29/18 Previous Rx's Medication Instructions Recorded Acetaminophen Tab [Tylenol] 650 mg PO Q6HR PRN tab 10/03/18 Gabapentin [Neurontin] 100 mg PO BID #10 cap 10/03/18 Levofloxacin [Levaquin] 500 mg PO DAILY #10 tab 10/03/18 Pantoprazole [Protonix] 40 mg PO AC-BRKFST #15 tablet. 10/03/18 Amoxic-Pot Clav 875-125Mg 1 tab PO Q12HR #20 tablet 12/22/19 [Augmentin 875-125] Allergies Allergy/AdvReac Type Severity Reaction Status Date / Time Sulfa (Sulfonamide AdvReac INDIGESTION Verified 12/21/19 21:21 Antibiotics) Review of Systems ROS Statement: Those systems with pertinent positive or pertinent negative responses have been documented in the HPI. ROS Other: All systems not noted in ROS Statement are negative. Past Medical History Past Medical History: Asthma, GERD/Reflux, Hypertension Additional Past Medical History / Comment(s): Cerebral palsey, bilateeral lower extremity deformities, bilateral lower leg and feet cellulitis, current L foot and R lower leg ulcers, chronic lymphedema, chronic venous insufficiency, gait disturbance, occasional urinary leakage, abdominal hernia, seasonal asthma. History of Any Multi-Drug Resistant Organisms: None Reported Past Surgical History: No Surgical Hx Reported Additional Past Surgical History / Comment(s): Bilateral heel cord lenghtenings, several bilateral leg surgeries for mobility. Past Anesthesia/Blood Transfusion Reactions: No Reported Reaction, Motion Sickness Past Psychological History: Depression Smoking Status: Former smoker Past Alcohol Use History: None Reported Past Drug Use History: None Reported - Past Family History Father Family Medical History: No Reported History Mother Additional Family Medical History / Comment(s): did not obtain information due to patient anxiety during assessment General Exam Limitations: no limitations General appearance: alert, in no apparent distress, other (This is a well- developed, well-nourished adult female patient in no acute distress. Vital signs upon presentation are temperature 98.2F, pulse 104, respirations 18, blood pressure 150/80, pulse ox 99% on room air.) Respiratory exam: Present: normal lung sounds bilaterally. Absent: respiratory distress, wheezes, rales, rhonchi, stridor Cardiovascular Exam: Present: regular rate, normal rhythm, normal heart sounds. Absent: systolic murmur, diastolic murmur, rubs, gallop, clicks Extremities exam: Present: full ROM, normal capillary refill, other (Lymphedema to the bilateral lower extremities. The left foot exhibits erythema over the dorsal aspect, she has a superficial wound to the area just above the toes, then the second toe is quite swollen with a wound to that area as well. Right foot exhibits erythema, wounds to the right lateral aspec.). Absent: normal inspection, tenderness, pedal edema, joint swelling, calf tenderness Neurological exam: Present: alert, oriented X3, CN II-XII intact Psychiatric exam: Present: normal affect, normal mood Skin exam: Present: warm, dry, intact, normal color. Absent: rash Course Vital Signs 12/21/19 21:15 Temperature 98.2 F Pulse Rate 104 H Respiratory 18 Rate Blood Pressure 150/80 O2 Sat by Pulse 99 Oximetry Medical Decision Making - Medical Decision Making 59-year-old female patient presented to the emergency department today for evaluation of wounds to the bilateral feet. Patient was told by her wound care nurse on Monday that she had maggots in the wounds and she needed to come to the emergency department for evaluation. Physical examination did reveal lymphedema to the bilateral lower extremities. Evaluation of the feet and wounds revealed no evidence for maggots. Wounds appear to be in relatively good condition. There is some erythema overlying the dorsal aspects of the feet. X-rays were obtained and showed destruction of the left fourth toe, did compare to previous xray from September 2018 and the findings are similar. Patient was started on Augmentin. She'll be discharged pop with her market development specialist Dr. Pardo. She does have home care nursing in to change dressings. She is instructed to follow-up with her primary care physician for recheck in 1-2 days. Return parameters discussed in detail. She verbalizes understanding and agrees with this plan. Disposition Clinical Impression: Chronic wound of extremity, Wound of left foot Disposition: HOME SELF-CARE Condition: Good Instructions (If sedation given, give patient instructions): Chronic Wound Care (ED) Additional Instructions: Follow with wound care as directed. Complete antibiotic prescription and full. Follow-up with market development specialist on Monday GI plan. Return to the emergency department immediately for any new, worsening, or concerning symptoms Prescriptions: Amoxic-Pot Clav 875-125Mg [Augmentin 875-125] 1 tab PO Q12HR #20 tablet Is patient prescribed a controlled substance at d/c from ED?: No Referrals: Jami Lo MD [Primary Care Provider] - 1-2 days Cesar Hunter MD [STAFF PHYSICIAN] - 1-2 days Time of Disposition: 01:06
[2019-12-21] MEDS ORDERED: AMOXIC-POT CLAV 875MG STARTER PACK 2 TAB BTL PO STA (23:59)
--- NOTE | 2019-12-22 00:50 | XR ---
EXAMINATION TYPE: XR foot limited LT DATE OF EXAM: 12/22/2019 COMPARISON: 09/29/2018 HISTORY: Wound. Soft tissue swelling TECHNIQUE: 2 views FINDINGS: There is significant soft tissue swelling on the dorsum of the foot. There is soft tissue s welling around the ankle. The bones are generally osteopenic. There is possible destructive change of the fourth toe. There is developmentally short fourth metatarsal. I see no soft tissue air. IMPRESSION: Significant soft tissue swelling. Possible destructive changes of the fourth toe consiste nt with osteomyelitis. No soft tissue air. Soft tissue swelling unchanged compared to old exam.
[2019-12-22] MEDS ORDERED: BACITRACIN OINT 1 EACH PACKET TOPICAL ONE (01:54)
[2019-12-22 05:32] VITALS: BP 142/68; PULSE 86; TEMP 98.6
== END 2019-12-22 03:00 | disposition home or self-care (01) ==
LOC: EC 21:07
DX: Z48.00 Encounter for change or removal of nonsurgical wound dressing (principal); S90.935D Unspecified superficial injury of left lesser toe(s), subsequent encounter; S90.921D Unspecified superficial injury of right foot, subsequent encounter; Z88.2 Allergy status to sulfonamides; Z87.891 Personal history of nicotine dependence; X58.XXXD Exposure to other specified factors, subsequent encounter
CPT/HCPCS: 73620; 99283; 96372; J2270

== ENCOUNTER → 2022-03-08 | Outpatient (CLI) | payer MEDICARE, OTHER ==
--- NOTE | 2022-03-08 13:35 | XR ---
EXAMINATION TYPE: XR foot complete RT DATE OF EXAM: 03/08/2022 COMPARISON: 12/05/2017 HISTORY: Pain TECHNIQUE: Three views are submitted. FINDINGS: The osseous structures are intact. There is no acute fracture or dislocation. Diffuse soft tissue edema. There is arthropathy of the first MTP with hallux valgus deformity. No overtly destructive chayito nges are seen. Soft tissue calcification or ossification adjacent to the distal phalanx first digit. IMPRESSION: 1. Severe soft tissue edema particularly overlying the dorsum of foot compatible with cellulitis. 2. No destructive changes are seen to suggest active osteomyelitis.
== END | disposition home or self-care (01) ==
LOC: RADXRMAIN 12:42
PROVIDERS: ATTEND Internal Medicine Infectious Disease
DX: S99.921A Unspecified injury of right foot, initial encounter (principal); R60.0 Localized edema

== ENCOUNTER → 2023-10-26 | Outpatient (CLI) | payer MEDICARE, OTHER | END | disposition home or self-care (01) | LOC: LABPRL 02:30 | PROVIDERS: ATTEND Family Medicine | DX: I10 Essential (primary) hypertension | CPT/HCPCS: 80053; 85025 ==